=== PATIENT | female | born 1965 | race Caucasian/White ===

== ENCOUNTER 2017-11-16 20:21 | Inpatient (IN) ==
[2017-11-16] MEDS ORDERED: MetroNIDAZOLE 500 MG/100 ML 500 MG/100 ML BAG IVPB ONE (20:49)
--- NOTE | 2017-11-16 21:33 | Emergency Department Note ---
Disposition Clinical Impression: Acute diverticulitis Intractable nausea and vomiting Qualifiers: Vomiting type: unspecified Qualified Code(s): R11.2 - Nausea with vomiting, unspecified Disposition: Admitted As Inpatient Condition: Fair Time of Disposition: 23:43 Abdominal Pain HPI - General Chief Complaint: ED Abdominal Pain Stated Complaint: just seen/ gettin sick again Time Seen by Provider: 11/16/17 20:49 Nursing Notes Reviewed: Yes Vital Signs Reviewed: Yes - History of Present Illness HPI Narrative: Patient is a 52-year-old female who presents to [facility] ED with a chief complaint of left lower quadrant abdominal pain. She was just seen here and discharged home after being diagnosed with acute diverticulitis. She could not tolerate oral antibiotics. She vomited as soon as she got out to the parking lot and then checked back in. Pt Subjective Complaint: abdominal pain Pain Scale: 5 - Related Data Home Medications Medication Instructions Recorded Confirmed Budesonide/Formoterol 160/4.5 1 puff IH BIDR 11/16/17 11/16/17 [Symbicort 160/4.5] Cetirizine HCl [Zyrtec] 10 mg PO DAILY 11/16/17 11/16/17 Furosemide [Lasix] 40 mg PO DAILY 11/16/17 11/16/17 Ipratropium/Albuterol Sulfate 2 puff IH DAILY 11/16/17 11/16/17 [Combivent Respimat 20-100 Mcg] Losartan/Hydrochlorothiazide 1 tab PO DAILY 11/16/17 11/16/17 [Losartan-Hctz 100-12.5 mg Tab] Potassium Chloride [K-Tab ER] 60 mg PO DAILY 11/16/17 11/16/17 Tiotropium [Spiriva] 1 puff IH DAILY 11/16/17 11/16/17 Previous Rx's Medication Instructions Recorded Ciprofloxacin [Cipro] 500 mg PO BID #14 tablet 11/16/17 Ondansetron ODT [Zofran ODT] 4 mg SL Q6HR PRN #15 tab.rapdis 11/16/17 metroNIDAZOLE [Flagyl] 500 mg PO TID 7 Days #21 tablet 11/16/17 Allergies Allergy/AdvReac Type Severity Reaction Status Date / Time No Known Allergies Allergy Verified 11/16/17 21:31 All systems ED: reviewed and negative except as stated. Abdominal Pain PMH - Past Medical History Medical history: Reports: atrial fibrillation, COPD, diabetes, hypertension Female Surgical History: Reports: other Psychiatric history: Reports: depression - Social History Smoking status: Former smoker Alcohol use: Reports: occasionally Drug use: Reports: none Physical Exam - General Limitations: no limitations General appearance: alert, in no apparent distress - Head Head exam: atraumatic, normocephalic, normal inspection - Eye Eye exam: Present: EOMI - ENT ENT exam: normal exam, normal oropharynx, mucous membranes moist - Neck Neck exam: Present: normal inspection, full ROM, trachea midline - Chest Chest inspection: Present: normal inspection, symmetric chest wall rise - Respiratory Respiratory exam: Present: normal lung sounds bilaterally - Cardiovascular Cardiovascular exam: Present: normal rhythm, tachycardia - Abdominal Exam Abdominal exam: Present: soft, tenderness Abdominal tenderness: Present: LLQ, moderate - Extremities Exam Extremities exam: Present: normal inspection, full ROM. Absent: tenderness, pedal edema - Neurological Exam Neurological exam: Present: alert, oriented X3 - Psychiatric Psychiatric exam: Present: normal affect, normal mood - Skin Skin exam: Present: warm, dry, intact, normal color Course Course Narrative: Patient seen and examined. Patient just checked back into the emergency department. She was just discharged for acute diverticulitis. Could not tolerate oral antibiotics. Continued to vomit in the parking lot and came back in. Please see my prior note for further documentation. We will start IV antibiotics Cipro and Flagyl and get her admitted to the hospital - Reevaluation(s) Reevaluation #1: I discussed with the hospitalists who has accepted patient for admission. Time: 23:00 Vital Signs Temperature 99.5 F 11/16/17 20:38 Pulse Rate 120 11/16/17 20:38 Respiratory Rate 18 11/16/17 20:38 Blood Pressure 149/111 11/16/17 20:38 O2 Sat by Pulse Oximetry 95 11/16/17 20:38 Temperature 98.1 F 11/17/17 22:48 Pulse Rate 97 11/17/17 22:48 Respiratory Rate 16 11/17/17 22:48 Blood Pressure 117/84 11/17/17 22:48 O2 Sat by Pulse Oximetry 97 11/17/17 22:48 Oxygen Delivery Oxygen Delivery Room Air Abdominal Pain - Medical Records Medical records reviewed: Yes I reviewed the patient's medical records. - Lab Data Lab results reviewed: Yes I reviewed the patient's lab results. Result diagrams: 11/17/17 01:55 11/17/17 01:55 Lab Results 11/17/17 11/17/17 11/17/17 Range/Units 01:55 01:55 01:55 WBC 8.7 (4.3-11.1) K/mcL RBC 4.04 (3.82-4.97) M/mcL Hgb 12.4 (11.5-15.4) g/dL Hct 37.2 (35.3-44.9) % MCV 92.1 (83.0-100.0) fL MCH 30.7 (28.0-33.3) pg MCHC 33.3 (31.6-35.5) g/dL RDW 14.1 (11.5-14.5) % Plt Count 218 (140-400) K/mcL MPV 9.5 (9.4-12.4) fL Immature Gran % 0.3 (0-4) % Seg Neutrophils % 73.3 % Lymphocytes % 14.0 % Monocytes % 10.8 % Eosinophils % 1.3 % Basophils % 0.3 % Neutrophils # 6.4 (1.6-8.9) K/mcL Lymphocytes # 1.2 (0.6-4.6) K/mcL Monocytes # 0.9 (0.0-1.3) K/mcL Eosinophils # 0.1 (0.0-0.6) K/mcL Basophils # 0.0 (0.0-0.2) K/mcL PT 13.4 H (9.4-12.1) Seconds INR 1.2 APTT 29.2 (26.0-36.0) Seconds Sodium 139 (136-145) mEq/L Potassium 3.5 (3.5-5.1) mEq/L Chloride 105 (98-107) mEq/L Carbon Dioxide 27 (23-29) mEq/L BUN 8 (6-20) mg/dL Creatinine 0.57 L (0.60-1.20) mg/dL Est GFR ( Amer) > 60 (> 60) Est GFR (Non-Af Amer) > 60 (> 60) BUN/Creatinine Ratio 14 (6-26) Glucose 118 H (70-105) mg/dL Calculated Osmolality 287 (280-300) Calcium 8.7 (8.6-10.3) mg/dL Phosphorus 3.4 (2.7-4.5) mg/dL Magnesium 1.8 (1.6-2.6) mg/dL Total Bilirubin 1.1 H (0.3-1.0) mg/dL AST 12 L (13-39) Units/L ALT 10 (7-52) Units/L Alkaline Phosphatase 67 (34-104) Units/L Serum Total Protein 6.1 L (6.4-8.9) g/dL Albumin 3.4 L (3.5-5.7) g/dL Globulin 2.7 (2.4-3.5) g/dL Albumin/Globulin Ratio 1.3 (1.1-2.2) Triglycerides 41 (< 150) mg/dL Cholesterol 137 (< 200) mg/dL LDL Cholesterol, Calc 65 (0-99) mg/dL VLDL Cholesterol, Calc 8 (< 31) mg/dL HDL Cholesterol 64 H (40-59) mg/dL Cholesterol/HDL Ratio 2.1 (0-4.9) - Radiology Data Radiology results reviewed: Yes I reviewed the patient's radiology results. Attestation Statement - Attestation Attestation: I examined this patient and my medical decision-making was reviewed with the Resident Physician. I agree with the documented findings, disposition and treatment plan as described except to the extent set forth below. Patient with acute diverticulitis. Failed outpatient by mouth challenge with oral antibiotics. We will admit for IV antibiotics and antiemetics as well as pain control.
--- NOTE | 2017-11-16 23:10 | Internal Med History&Physical ---
Date of Encounter: 11/17/17 Internal Medicine - H&P: HPI History of present illness: Ms. Bajwa is a 52 year old female Patient who presents with abdominal pain and vomiting. Patient just checked back into the emergency department. She was just discharged for acute diverticulitis. Could not tolerate oral antibiotics. Continued to vomit in the parking lot and came back to ER Past Med Surg Social Fam HX - Past Medical History Medical history: atrial fibrillation, COPD, diabetes, hypertension Additional medical history: depression, insomniqa Psychiatric history: depression - Past Surgical History Surgical History: hysterectomy, other Additional surgical history: partial hysterectomy - Social History Smoking Status: Former smoker Smokeless Tobacco Status: No Alcohol use: occasionally Drug use: none - Family History Mother Adopted: No Family Member Ethnicity: Non- Father Hx Family Cancer: Yes (oak cell) Internal Medicine - H&P: Meds Budesonide/Formoterol 160/4.5 [Symbicort 160/4.5] 1 puff IH BIDR 11/16/17 [ History] Cetirizine HCl [Zyrtec] 10 mg PO DAILY 11/16/17 [History] Ciprofloxacin [Cipro] 500 mg PO BID #14 tablet 11/16/17 [Rx] Furosemide [Lasix] 40 mg PO DAILY 11/16/17 [History] Ipratropium/Albuterol Sulfate [Combivent Respimat 20-100 Mcg] 2 puff IH DAILY [History] Losartan/Hydrochlorothiazide [Losartan-Hctz 100-12.5 mg Tab] 1 tab PO DAILY [History] Ondansetron ODT [Zofran ODT] 4 mg SL Q6HR PRN #15 tab.rapdis 11/16/17 [Rx] Potassium Chloride [K-Tab ER] 60 mg PO DAILY 11/16/17 [History] Tiotropium [Spiriva] 1 puff IH DAILY 11/16/17 [History] metroNIDAZOLE [Flagyl] 500 mg PO TID 7 Days #21 tablet 11/16/17 [Rx] 3 Allergy/AdvReac Type Severity Reaction Status Date / Time No Known Allergies Allergy Verified 11/16/17 21:31 All Systems PM: A 10-system review of systems was performed and is negative for pertinent findings except as documented above in the HPI. Review of systems: Diverticulitis - NPO -ABs - Constitutional Vitals: Temp Pulse Resp BP Pulse Ox 99.5 F 120 18 149/111 95 11/16/17 22:27 11/16/17 22:27 11/16/17 22:27 11/16/17 22:27 11/16/17 22:27 Internal Med - H&P Results - Labs CBC & Chem 7: 11/17/17 01:55 11/17/17 01:55 - Assessment and plan (1) Acute diverticulitis Current Visit: Yes Status: Acute Assessment and plan: We will start ABs with ciprofloxacin and flagyl (2) Intractable nausea and vomiting Current Visit: Yes Status: Acute Assessment and plan: Due to diverticulitis Qualifiers: Vomiting type: unspecified Qualified Code(s): R11.2 - Nausea with vomiting , unspecified (3) HTN (hypertension) Current Visit: No Status: Chronic Assessment and plan: We will cont home meds Qualifiers: Hypertension type: essential hypertension Qualified Code(s): I10 - Essential (primary) hypertension (4) Chronic back pain Current Visit: No Status: Chronic (5) DVT prophylaxis Current Visit: Yes Status: Acute (6) Atrial fibrillation Current Visit: Yes Status: Acute - Time Spent With Patient Total time spent is greater than 50% in coordination of care (as documented) at patient's floor/unit and/or counseling patient:
[2017-11-17] MEDS ORDERED: Naloxone 0.4 MG/ML INJ IVP PRN ×2 (01:42→15:40)
[2017-11-17] MEDS ORDERED: Acetaminophen 325 MG TABLET PO PRN (01:42)
[2017-11-17 02:11] LABS: Basophils % 0.3 %; Eosinophils # 0.1 K/mcL (0.0-0.6); Eosinophils % 1.3 %; Hematocrit 37.2 % (35.3-44.9); Hemoglobin 12.4 g/dL (11.5-15.4); Immature Granulocytes % 0.3 % (0-4); Lymphocytes # 1.2 K/mcL (0.6-4.6); Mean Corpuscular HGB Conc 33.3 g/dL (31.6-35.5); Mean Corpuscular Hemoglobin 30.7 pg (28.0-33.3); Mean Corpuscular Volume 92.1 fL (83.0-100.0); Mean Platelet Volume 9.5 fL (9.4-12.4); Monocytes # 0.9 K/mcL (0.0-1.3); Monocytes % 10.8 %; Neutrophils # 6.4 K/mcL (1.6-8.9); Platelet Count 218 K/mcL (140-400); Red Blood Count 4.04 M/mcL (3.82-4.97); Red Cell Distribution Width 14.1 % (11.5-14.5); Segmented Neutrophils % 73.3 %
[2017-11-17 02:16] LABS: INR 1.2; Prothrombin Time 13.4 Seconds (9.4-12.1)
[2017-11-17 02:18] LABS: Activated Partial Thrombo Time 29.2 Seconds (26.0-36.0)
[2017-11-17 02:36] LABS: Alanine Aminotransferase 10 Units/L (7-52); Albumin 3.4 g/dL (3.5-5.7); Albumin/Globulin Ratio 1.3 (1.1-2.2); Alkaline Phosphatase 67 Units/L (34-104); Aspartate Amino Transferase 12 Units/L (13-39); BUN/Creatinine Ratio 14 (6-26); Bilirubin,Total 1.1 mg/dL (0.3-1.0); Blood Urea Nitrogen 8 mg/dL (6-20); Calcium 8.7 mg/dL (8.6-10.3); Carbon Dioxide 27 mEq/L (23-29); Chloride 105 mEq/L (98-107); Chol/HDL Ratio 2.1 (0-4.9); Cholesterol 137 mg/dL (< 200); Globulin 2.7 g/dL (2.4-3.5); Glucose 118 mg/dL (70-105); HDL Cholesterol 64 mg/dL (40-59); LDL Cholesterol,Calculated 65 mg/dL (0-99); Magnesium 1.8 mg/dL (1.6-2.6); Osmolality,Calculated 287 (280-300); Phosphorous 3.4 mg/dL (2.7-4.5); Potassium 3.5 mEq/L (3.5-5.1); Sodium 139 mEq/L (136-145); Total Protein 6.1 g/dL (6.4-8.9); Triglycerides 41 mg/dL (< 150); eGFR For African Americans > 60 (> 60); eGFR For Non-African Americans > 60 (> 60)
[2017-11-17] MEDS ORDERED: *HR* HYDROcodone/Acet 5/325 mg TABLET PO PRN (02:44)
[2017-11-17] MEDS: 0.9 % Sodium Chloride 1,000 ML IVC SCH ×2 (02:53→13:13)
[2017-11-17] MEDS: Tiotropium 18 MCG inhalation IH SCH (07:45)
[2017-11-17] MEDS: Budesonide/Formoterol 160/4.5 MDI IH SCH ×2 (07:45→19:49)
[2017-11-17] MEDS ORDERED: Ondansetron 4 MG/2 ML VIAL IVP PRN (08:19)
[2017-11-17] MEDS: Loratadine 10 MG TABLET PO SCH (08:59)
[2017-11-17] MEDS: Furosemide 40 MG TABLET PO SCH (09:00)
[2017-11-17] MEDS ORDERED: (Combivent Respimat) IH SCH (09:00)
[2017-11-17] MEDS: hydroCHLOROthiazide 25 MG TABLET PO SCH (09:00)
--- NOTE | 2017-11-17 09:14 | Internal Med Progress Note ---
Date of Encounter: 11/17/17 Time of Encounter: 09:11 - Assessment and plan (1) Acute diverticulitis Current Visit: Yes Status: Acute Assessment and plan: N/V and LLQ abdominal pain CT abdomen-acute uncomplicated sigmoid colonic diverticulitis ABX ciprofloxacin and flagyl antiemetics pain management IVF increase diet to clear and adv as justin (2) Intractable nausea and vomiting Current Visit: Yes Status: Acute Assessment and plan: 2/2 diverticulitis see above Qualifiers: Vomiting type: unspecified Qualified Code(s): R11.2 - Nausea with vomiting , unspecified (3) Chronic back pain Current Visit: No Status: Chronic Qualifiers: Qualified Code(s): M54.9 - Dorsalgia, unspecified; G89.29 - Other chronic pain (4) HTN (hypertension) Current Visit: No Status: Chronic Assessment and plan: Stable cont home meds Qualifiers: Hypertension type: essential hypertension Qualified Code(s): I10 - Essential (primary) hypertension (5) Atrial fibrillation Current Visit: Yes Status: Acute Assessment and plan: h/o not on anticoagulation RRR, S1,S2 tele Qualifiers: Atrial fibrillation type: paroxysmal Qualified Code(s): I48.0 - Paroxysmal atrial fibrillation (6) DVT prophylaxis Current Visit: Yes Status: Acute Assessment and plan: Low risk, early ambulation - Time Spent With Patient Total time spent is greater than 50% in coordination of care (as documented) at patient's floor/unit and/or counseling patient: 25 - 35 minutes - Subjective Interval history: Patient seen and examined at bedside today. No acute changes overnight. Continued to report left lower quadrant abdominal pain and nausea. However does report that this is improving. - Constitutional Vitals: Temp Pulse Resp BP Pulse Ox 98.1 F 89 18 118/84 94 11/17/17 08:11 11/17/17 08:11 11/17/17 08:11 11/17/17 08:11 11/17/17 08:11 General appearance: Present: mild distress, A&O X 3, pleasant, answers questions appropriately - Head Head exam: Present: atraumatic, normocephalic - Eye Eye exam: Present: PERRL, conjuntiva pink, sclera anicteric Pupils: Present: PERRL - Neck Neck exam general surgery: Present: supple, trachea midline. Absent: lymphadenopathy - Respiratory Respiratory exam: Present: CTAB. Absent: accessory muscle use, rales, rhonchi, wheezes - Cardiovascular Cardiovascular exam: Present: RRR, +S1, +S2. Absent: diastolic murmur, gallop, rubs, systolic murmur - GI/Abdominal GI/Abdominal exam: Present: normal bowel sounds, soft, tenderness (LLQ), no peritoneal signs. Absent: distended - Extremities Exam Extremities exam: Present: warm, radial pulses palpable and symmetrical. Absent : calf tenderness, cyanotic, pedal edema - Neurological Exam Neurological exam: Present: CN II-XII intact, oriented X3, no focal deficits. Absent: pronater drift, facial droop, speech deficit - Skin Skin exam: Present: dry, intact Internal Medicine: Result - Labs CBC & Chem 7: 11/17/17 01:55 11/17/17 01:55 Labs: Short CBC 11/17/17 Range/Units 01:55 WBC 8.7 (4.3-11.1) K/mcL Hgb 12.4 (11.5-15.4) g/dL Hct 37.2 (35.3-44.9) % Plt Count 218 (140-400) K/mcL Neutrophils # 6.4 (1.6-8.9) K/mcL BMP 11/17/17 01:55 Sodium 139 Potassium 3.5 Chloride 105 Carbon Dioxide 27 BUN 8 Creatinine 0.57 L Glucose 118 H Calcium 8.7 Liver Function 11/17/17 Range/Units 01:55 Total Bilirubin 1.1 H (0.3-1.0) mg/dL AST 12 L (13-39) Units/L ALT 10 (7-52) Units/L Alkaline Phosphatase 67 (34-104) Units/L Albumin 3.4 L (3.5-5.7) g/dL - ABG Interpretation ABG results: PT/INR, D-dimer PT 13.4 Seconds (9.4-12.1) H 11/17/17 01:55 Consult Discharge Plan - Plan Referrals: Anthony Guo MD [Primary Care Provider] -
[2017-11-17] MEDS: MetroNIDAZOLE 500 MG/100 ML 500 MG/100 ML BAG IVPB SCH ×3 (09:21→23:47)
[2017-11-18 07:11] LABS: Basophils % 0.6 %; Eosinophils # 0.2 K/mcL (0.0-0.6); Eosinophils % 4.9 %; Hematocrit 37.1 % (35.3-44.9); Hemoglobin 11.7 g/dL (11.5-15.4); Immature Granulocytes % 0.2 % (0-4); Lymphocytes # 1.2 K/mcL (0.6-4.6); Lymphocytes % 24.6 %; Mean Corpuscular HGB Conc 31.5 g/dL (31.6-35.5); Mean Corpuscular Hemoglobin 30.2 pg (28.0-33.3); Mean Corpuscular Volume 95.6 fL (83.0-100.0); Mean Platelet Volume 9.7 fL (9.4-12.4); Monocytes # 0.5 K/mcL (0.0-1.3); Monocytes % 9.6 %; Neutrophils # 2.8 K/mcL (1.6-8.9); Platelet Count 219 K/mcL (140-400); Red Blood Count 3.88 M/mcL (3.82-4.97); Red Cell Distribution Width 14.1 % (11.5-14.5); Segmented Neutrophils % 60.1 %
[2017-11-18 07:17] VITALS: BP 108/73
[2017-11-18 07:38] LABS: BUN/Creatinine Ratio 10 (6-26); Blood Urea Nitrogen 6 mg/dL (6-20); Calcium 8.8 mg/dL (8.6-10.3); Carbon Dioxide 29 mEq/L (23-29); Chloride 101 mEq/L (98-107); Glucose 161 mg/dL (70-105); Osmolality,Calculated 289 (280-300); Potassium 3.3 mEq/L (3.5-5.1); Sodium 139 mEq/L (136-145); eGFR For African Americans > 60 (> 60); eGFR For Non-African Americans > 60 (> 60)
[2017-11-18] MEDS: Budesonide/Formoterol 160/4.5 MDI IH SCH (07:56)
[2017-11-18] MEDS: Tiotropium 18 MCG inhalation IH SCH (07:56)
[2017-11-18] MEDS: hydroCHLOROthiazide 25 MG TABLET PO SCH (08:49)
[2017-11-18] MEDS: Furosemide 40 MG TABLET PO SCH (08:49)
[2017-11-18] MEDS: Loratadine 10 MG TABLET PO SCH (08:49)
[2017-11-18] MEDS: MetroNIDAZOLE 500 MG/100 ML 500 MG/100 ML BAG IVPB SCH (08:59)
[2017-11-18] MEDS ORDERED: Ondansetron ODT 4 MG TAB.RAPDIS SL PRN (10:09)
[2017-11-18] MEDS ORDERED: metroNIDAZOLE 500 MG TABLET PO SCH (10:15)
--- NOTE | 2017-11-18 10:15 | Discharge Summary ---
- NOTES TO OUTPATIENT PROVIDER Notes to Outpatient Provider: Presents left lower quadrant abdominal pain. Diverticulitis found per CT. He discharged on ciprofloxacin and Flagyl. We will receive a total of 14 days both ABX. Instructed to take Tylenol or ibuprofen for discomfort. Education provided regarding low-residue diet. No labs or studies pending at discharge Date of Encounter: 11/18/17 Time of Encounter: 10:10 - Discharge Diagnosis (1) Acute diverticulitis Priority: Primary Status: Acute Assessment and Plan: CT abdomen-acute uncomplicated sigmoid colonic diverticulitis Patient presented with N/V and LLQ abdominal pain Was seen and treated in the ED and discharged home However, in the parking lot began to experience more intense abdominal pain and was vomiting This prompted admission for IVF administration, IV ABX and pain management She has had an uncomplicated hospital course On day of discharge no longer having nausea or vomiting and reporting abdominal pain is improving We have been steadily increasing her diet since yesterday and she has tolerated this well Patient has been instructed to follow-up with PCP within 1 week of discharge. Also, she is instructed to return to the ED showed abdominal pain worsened and or persist or should she have recurrence of nausea and vomiting. Patient verbalizes understanding denies any further questions at this time. Also, the patient was given information regarding a low residue diet. Again patient verbalizes understanding denies any further questions at this time. Discharged on ABX ciprofloxacin and flagyl-10 more days SL antiemetics Instructed to use ibuprofen or Tylenol for pain management (2) Intractable nausea and vomiting Priority: Secondary Status: Resolved Assessment and Plan: 2/2 diverticulitis resolved continue antiemetics at discharge Qualifiers: Vomiting type: unspecified Qualified Code(s): R11.2 - Nausea with vomiting , unspecified (3) Chronic back pain Priority: Secondary Status: Chronic Qualifiers: Qualified Code(s): M54.9 - Dorsalgia, unspecified; G89.29 - Other chronic pain (4) HTN (hypertension) Priority: Secondary Status: Chronic Assessment and Plan: Stable cont home meds at d/c Qualifiers: Hypertension type: essential hypertension Qualified Code(s): I10 - Essential (primary) hypertension (5) Atrial fibrillation Priority: Secondary Status: Acute Assessment and Plan: h/o not on anticoagulation RRR, S1,S2 per assessment on day of d/c Qualifiers: Atrial fibrillation type: paroxysmal Qualified Code(s): I48.0 - Paroxysmal atrial fibrillation Hospital course: Ms. Bajwa is a 52 year old female Please see assessment and plan for hospital course Discharge discussed with: patient, nurse, case management - Time Spent with Patient Total time spent providing and/or coordinating discharge services: Less than 30 minutes - Discharge Medications Prescriptions: Ondansetron ODT [Zofran ODT] 4 mg SL Q8HR PRN 30 Days #90 tab.rapdis PRN Reason: Nausea And Vomiting Ciprofloxacin [Cipro] 500 mg PO BID 10 Days #20 tablet metroNIDAZOLE [Flagyl] 500 mg PO TID 10 Days #30 tablet Home Medications: Budesonide/Formoterol 160/4.5 [Symbicort 160/4.5] 1 puff IH BIDR 11/16/17 [ History] Cetirizine HCl [Zyrtec] 10 mg PO DAILY 11/16/17 [History] Furosemide [Lasix] 40 mg PO DAILY 11/16/17 [History] Ipratropium/Albuterol Sulfate [Combivent Respimat 20-100 Mcg] 2 puff IH DAILY [History] Losartan/Hydrochlorothiazide [Losartan-Hctz 100-12.5 mg Tab] 1 tab PO DAILY [History] Potassium Chloride [K-Tab ER] 60 mg PO DAILY 11/16/17 [History] Tiotropium [Spiriva] 1 puff IH DAILY 11/16/17 [History] Ciprofloxacin [Cipro] 500 mg PO BID 10 Days #20 tablet 11/18/17 [Rx] Ondansetron ODT [Zofran ODT] 4 mg SL Q8HR PRN 30 Days #90 tab.rapdis 11/18/17 [ Rx] metroNIDAZOLE [Flagyl] 500 mg PO TID 10 Days #30 tablet 11/18/17 [Rx] Allergies/Adverse Reactions: 3 Allergy/AdvReac Type Severity Reaction Status Date / Time No Known Allergies Allergy Verified 11/16/17 21:31 Date of admission: 11/17/17 15:40 Primary care physician: Anthony Guo MD Discharging clinician: Lopez Griggs Anticipated date of discharge: 11/18/17 - Constitutional Vitals: Temp Pulse Resp BP Pulse Ox 97.8 F 84 16 108/73 96 11/18/17 07:16 11/18/17 07:16 11/18/17 07:56 11/18/17 07:16 11/18/17 07:56 General appearance: Present: mild distress, A&O X 3, pleasant, answers questions appropriately - Head Head exam: Present: atraumatic, normocephalic - Eye Eye exam: Present: EOMI, PERRL, conjuntiva pink, sclera anicteric Pupils: Present: PERRL - Neck Neck exam general surgery: Present: supple, trachea midline. Absent: lymphadenopathy - Respiratory Respiratory exam: Present: CTAB. Absent: accessory muscle use, rales, rhonchi, wheezes - Cardiovascular Cardiovascular exam: Present: RRR, +S1, +S2. Absent: diastolic murmur, gallop, rubs, systolic murmur - GI/Abdominal GI/Abdominal exam: Present: normal bowel sounds, soft, tenderness (Mild left lower quadrant tenderness, improving compared to yesterday), no peritoneal signs. Absent: distended, firm, guarding - Extremities Exam Extremities exam: Present: warm, radial pulses palpable and symmetrical. Absent : calf tenderness, cyanotic, pedal edema - Neurological Exam Neurological exam: Present: CN II-XII intact, oriented X3, no focal deficits. Absent: pronater drift, facial droop, speech deficit - Skin Skin exam: Present: dry, intact - Patient Status Disposition: Home, Self-Care Condition: Fair Overall status at discharge: patient is progressing back to baseline - Discharge Instructions Instructions: Diverticulitis (DC), Atrial Fibrillation (DC) Follow Up With: Anthony Guo MD [Primary Care Provider] - - Diet and Activity Activity: resume usual activities as tolerated Diet: other (Low-residue diet)
== END 2017-11-18 11:43 | disposition home or self-care (01) | DRG 244 ==
LOC: EMEROO 20:21 → 3BNU 20:21
PROVIDERS: ADMIT Internal Medicine Nephrology; ATTEND Internal Medicine Nephrology

== ENCOUNTER 2018-08-18 14:17 | Observation (INO) ==
--- NOTE | 2018-08-18 14:53 | Emergency Department Note ---
Disposition Clinical Impression: Chest pain Qualifiers: Chest pain type: unspecified Qualified Code(s): R07.9 - Chest pain, unspecified CHF exacerbation Qualifiers: Heart failure type: systolic Qualified Code(s): I50.23 - Acute on chronic systolic (congestive) heart failure Disposition: Admitted As Inpatient Condition: Undetermined Referrals: Anthony Guo MD [Primary Care Provider] - Forms: ED Satisfaction Letter Time of Disposition: 16:17 Chest Pain HPI - General Chief Complaint: ED Chest Pain Stated Complaint: multiple complaints Time Seen by Provider: 08/18/18 14:22 Source: patient Mode of arrival: ambulatory Limitations: no limitations Vital Signs Reviewed: Yes Nursing Notes Reviewed: Yes - History of Present Illness HPI Narrative: 53-year-old female with history of COPD, atrial fibrillation, arrives to the emergency department with complaint of chest pain that is retrosternal radiating to the left chest and left shoulder that started at 11 AM this morning with associated shortness of breath and nausea. Patient states she has never had anything this bad before. She denies any previous history of IA. Patient was diagnosed with atrial fibrillation a few months ago and has been placed on Cardizem 360 mg daily as well as Xarelto. She has been taking her medications as prescribed her history. She denies any other acute complaints including hemoptysis, unilateral excellent, recent surgeries or immobilizations, history DVT or PE. She is on no exogenous hormones. Patient denies any other acute complaints at this time including abdominal pain, vomiting, diarrhea, melena, hematochezia, headache, fevers, chills. Severity scale (1-10): 4 - Related Data Home Medications Medication Instructions Recorded Confirmed Budesonide/Formoterol 160/4.5 1 puff IH BIDR 11/16/17 07/03/18 [Symbicort 160/4.5] Cetirizine HCl [Zyrtec] 10 mg PO DAILY 11/16/17 07/03/18 Ipratropium/Albuterol Sulfate 2 puff IH DAILY 11/16/17 07/03/18 [Combivent Respimat 20-100 Mcg] Losartan/Hydrochlorothiazide 1 tab PO DAILY 11/16/17 07/03/18 [Losartan-Hctz 100-12.5 mg Tab] Potassium Chloride [K-Tab ER] 60 meq PO DAILY 11/16/17 07/03/18 Tiotropium [Spiriva] 1 puff IH DAILY 11/16/17 07/03/18 Previous Rx's Medication Instructions Recorded Rivaroxaban [Xarelto] 20 mg PO 1700 tablet 07/05/18 Allergies Allergy/AdvReac Type Severity Reaction Status Date / Time No Known Allergies Allergy Verified 11/16/17 21:31 All systems ED: reviewed and negative except as stated. Constitutional: Denies: fever, chills, weakness ENT ED: Denies: dysphagia Cardiovascular: Reports: chest pain. Denies: dyspnea on exertion, orthopnea, edema, syncope Respiratory: Reports: dyspnea. Denies: cough, wheezes, sputum production Gastrointestinal: Reports: nausea. Denies: abdominal pain, vomiting, diarrhea, constipation Genitourinary: Denies: urgency, dysuria Musculoskeletal: Denies: back pain Integumentary: Denies: rash Neurological: Denies: headache Chest Pain PMH - Past Medical History Medical history: Reports: atrial fibrillation, COPD, diabetes, hypertension Surgical history: Reports: hysterectomy, other Psychiatric history: Reports: depression - Social History Smoking Status: Former smoker Alcohol use: Reports: occasionally Drug use: Reports: none Physical Exam - General Limitations: no limitations General appearance: alert, in no apparent distress - Head Head exam: atraumatic, normocephalic, normal inspection - Eye Eye exam: Present: normal appearance, PERRL, EOMI - ENT ENT exam: normal exam, normal oropharynx, mucous membranes moist - Neck Neck exam: Present: normal inspection, full ROM, trachea midline - Chest Chest inspection: Present: normal inspection, symmetric chest wall rise - Respiratory Respiratory exam: Present: normal lung sounds bilaterally - Cardiovascular Cardiovascular exam: Present: tachycardia, irregular rhythm, normal heart sounds - Abdominal Exam Abdominal exam: Present: soft, Non-Tender. Absent: tenderness, distention, guarding, rebound, rigidity - Extremities Exam Extremities exam: Present: normal inspection, full ROM, normal capillary refill. Absent: tenderness, pedal edema - Neurological Exam Neurological exam: Present: alert, oriented X3 - Skin Skin exam: Present: warm, dry, intact, normal color Course Vital Signs Temperature 98.6 F 08/18/18 14:19 Pulse Rate 108 08/18/18 14:19 Respiratory Rate 22 08/18/18 14:19 Blood Pressure 150/76 08/18/18 14:19 O2 Sat by Pulse Oximetry 97 08/18/18 14:19 Temperature 98.6 F 08/18/18 14:19 Pulse Rate 112 08/18/18 15:44 Respiratory Rate 18 08/18/18 15:44 Blood Pressure 143/101 08/18/18 15:44 O2 Sat by Pulse Oximetry 97 08/18/18 15:44 Oxygen Delivery Oxygen Delivery Room Air Chest Pain - MDM Narrative Medical decision making narrative: Patient's workup in the emergency department demonstrates findings concerning for acute CHF. Patient is a mildly elevated BNP and cardiomegaly which appears new. The patient's troponin is negative. EKG demonstrates no acute process with the exception of atrial fibrillation. The patient is no nature for ablation is on Xarelto. Given the patient's chest pain I believe the patient needs to be admitted to the hospital trend her troponins. In addition a feels though the patient needs an echocardiogram with new cardiomegaly combined with elevated BNP. Patient made aware and agrees to plan. No further questions or concerns noted at this time. Accepted by Dr. Grubbs. - Medical Records Medical records reviewed: Yes I reviewed the patient's medical records. - Lab Data Lab results reviewed: Yes I reviewed the patient's lab results. Result diagrams: 08/18/18 14:44 08/18/18 14:44 Lab Results 08/18/18 08/18/18 08/18/18 Range/Units 14:44 14:44 14:44 WBC 4.5 (4.3-11.1) K/mcL RBC 4.01 (3.82-4.97) M/mcL Hgb 12.0 (11.5-15.4) g/dL Hct 37.4 (35.3-44.9) % MCV 93.3 (83.0-100.0) fL MCH 29.9 (28.0-33.3) pg MCHC 32.1 (31.6-35.5) g/dL RDW 13.7 (11.5-14.5) % Plt Count 282 (140-400) K/mcL MPV 9.1 L (9.4-12.4) fL Immature Gran % 0.4 (0-4) % Seg Neutrophils % 72.0 % Lymphocytes % 16.0 % Monocytes % 8.9 % Eosinophils % 1.6 % Basophils % 1.1 % Neutrophils # 3.2 (1.6-8.9) K/mcL Lymphocytes # 0.7 (0.6-4.6) K/mcL Monocytes # 0.4 (0.0-1.3) K/mcL Eosinophils # 0.1 (0.0-0.6) K/mcL Basophils # 0.1 (0.0-0.2) K/mcL D-Dimer 245 (0-500) ng/mLFEU Sodium 138 (136-145) mEq/L Potassium 4.0 (3.5-5.1) mEq/L Chloride 103 (98-107) mEq/L Carbon Dioxide 27 (23-29) mEq/L BUN 6 (6-20) mg/dL Creatinine 0.52 L (0.60-1.20) mg/dL Est GFR ( Amer) > 60 (> 60) Est GFR (Non-Af Amer) > 60 (> 60) BUN/Creatinine Ratio 12 (6-26) Glucose 114 H (70-105) mg/dL Calculated Osmolality 284 (280-300) Calcium 8.8 (8.6-10.3) mg/dL Troponin I < 0.03 (< 0.04) ng/mL B-Natriuretic Peptide (Less than 100) pg/mL 08/18/18 Range/Units 14:44 WBC (4.3-11.1) K/mcL RBC (3.82-4.97) M/mcL Hgb (11.5-15.4) g/dL Hct (35.3-44.9) % MCV (83.0-100.0) fL MCH (28.0-33.3) pg MCHC (31.6-35.5) g/dL RDW (11.5-14.5) % Plt Count (140-400) K/mcL MPV (9.4-12.4) fL Immature Gran % (0-4) % Seg Neutrophils % % Lymphocytes % % Monocytes % % Eosinophils % % Basophils % % Neutrophils # (1.6-8.9) K/mcL Lymphocytes # (0.6-4.6) K/mcL Monocytes # (0.0-1.3) K/mcL Eosinophils # (0.0-0.6) K/mcL Basophils # (0.0-0.2) K/mcL D-Dimer (0-500) ng/mLFEU Sodium (136-145) mEq/L Potassium (3.5-5.1) mEq/L Chloride (98-107) mEq/L Carbon Dioxide (23-29) mEq/L BUN (6-20) mg/dL Creatinine (0.60-1.20) mg/dL Est GFR ( Amer) (> 60) Est GFR (Non-Af Amer) (> 60) BUN/Creatinine Ratio (6-26) Glucose (70-105) mg/dL Calculated Osmolality (280-300) Calcium (8.6-10.3) mg/dL Troponin I (< 0.04) ng/mL B-Natriuretic Peptide 192 H (Less than 100) pg/mL - Radiology Data Radiology results reviewed: Yes I reviewed the patient's radiology results. Chest X-Ray 08/18/18 14:27 IMPRESSION: Cardiomegaly and/or pericardial effusion, increased from 2015. Grossly clear lungs. D/ / Oli Gutierrez MD / Oli Gutierrez MD Interpreting Provider: Oli Gutierrez MD - EKG Data EKG attestation: Yes I reviewed and interpreted this EKG. EKG results narrative: Heart rate 109 beats for minute. Atrial fibrillation. No ST elevation or ST depression noted. No acute changes with the exception of mild tachycardia.
[2018-08-18 14:57] LABS: Basophils # 0.1 K/mcL (0.0-0.2); Basophils % 1.1 %; Eosinophils # 0.1 K/mcL (0.0-0.6); Eosinophils % 1.6 %; Hematocrit 37.4 % (35.3-44.9); Immature Granulocytes % 0.4 % (0-4); Lymphocytes # 0.7 K/mcL (0.6-4.6); Mean Corpuscular HGB Conc 32.1 g/dL (31.6-35.5); Mean Corpuscular Hemoglobin 29.9 pg (28.0-33.3); Mean Corpuscular Volume 93.3 fL (83.0-100.0); Mean Platelet Volume 9.1 fL (9.4-12.4); Monocytes # 0.4 K/mcL (0.0-1.3); Monocytes % 8.9 %; Neutrophils # 3.2 K/mcL (1.6-8.9); Platelet Count 282 K/mcL (140-400); Red Blood Count 4.01 M/mcL (3.82-4.97); Red Cell Distribution Width 13.7 % (11.5-14.5)
[2018-08-18 15:31] LABS: BUN/Creatinine Ratio 12 (6-26); Blood Urea Nitrogen 6 mg/dL (6-20); Calcium 8.8 mg/dL (8.6-10.3); Carbon Dioxide 27 mEq/L (23-29); Chloride 103 mEq/L (98-107); Glucose 114 mg/dL (70-105); Osmolality,Calculated 284 (280-300); Sodium 138 mEq/L (136-145); Troponin I < 0.03 ng/mL (< 0.04); eGFR For Non-African Americans > 60 (> 60)
[2018-08-18] MEDS ORDERED: Aspirin 325 MG TABLET PO ONE (16:16)
--- NOTE | 2018-08-18 16:26 | Internal Med History&Physical ---
<Luis Eduardo Burgess - Last Filed: 08/18/18 17:21> Date of Encounter: 08/18/18 Time of Encounter: 17:11 Internal Medicine - H&P: HPI Chief complaint: Chest pain, SOB Admitted From: Emergency Dept Plans for Post Hospital Care: Home History of present illness: Ms. Bajwa is a 53 year old female with past medical history of COPD, pre- diabetes, atrial fibrillation on Xarelto, depression who presents emergency department with multiple complaints. She reports that she awoke with chest pain, shortness of breath, nausea, vomiting, diaphoresis, chills this morning at approximately 10 AM. She first states that she has not had these symptoms in the past except for when occasionally she goes into atrial fibrillation with RVR. Her chest pain is located substernally and also in the left chest with some radiation to her left shoulder. She describes it as a pins and needles feeling. She denies any exacerbating or relieving factors, although when asked if she could climb a flight of stairs she states that "that would make my chest hurt and make me short of breath". Upon further investigation, she has had symptoms like this although not this severe over the past 2 months. She also admits to shortness of breath, particularly with exertion. She has had this in the past and has been diagnosed with COPD and is on home inhalers. She states the inhalers do help her symptoms sometimes but not always. She has also been on Lasix 40 mg daily at home. She admits to orthopnea and lower extremity sw elling which is worsened from her baseline. Denies recent travel, sick contacts, recent illness, urinary or BM changes. Admits to possible worsening of chest pain when leaning forward but is unsure. In the emergency department, vital signs are significant for a heart rate of 108, respiratory rate 22 she was tolerating 97% oxygen on room air. Laboratory results were significant for a BNP of 192 and negative troponin. EKG was obtained and showed atrial fibrillation with no ST/T-wave changes. Mild RVR. Chest x-ray was also obtained and showed cardiomegaly and/or pericardial effusion which is increased from 2015. D-dimer was within normal limits. Patient's past cardio workout includes echocardiogram on 07/04/18 which showed ejection fraction of 55% with indeterminate diastolic dysfunction. Also showed mild dilatation of right ventricle, right atrium and moderate dilatation of left atrium, mild MR. Past medical history: COPD, prediabetes, A. fib, JOSELIN (noncompliant on CPAP), depression Past surgical history: Lap band surgery, partial hysterectomy Social history: Former distant smoker, drinks 6-8 beers 3 times weekly, former marijuana use Family history: Noncontributory Past Med Surg Social Fam HX - Past Medical History Medical history: atrial fibrillation, COPD, diabetes, hypertension Additional medical history: depression, insomniqa Psychiatric history: depression - Past Surgical History Surgical History: hysterectomy, other Additional surgical history: partial hysterectomy - Social History Smoking Status: Former smoker Smokeless Tobacco Status: No Alcohol use: occasionally Drug use: none - Family History Mother Adopted: No Family Member Ethnicity: Non- Hx Family Cardiac Disorders: Yes (CHF) Hx Family Respiratory Disorders: Yes (COPD) Father Adopted: No Family Member Ethnicity: Non- Living Status: Hx Family Cardiac Disorders: No Hx Family Respiratory Disorders: No Hx Family Cancer: Yes (oak cell) Hx Family GI Disorders: No Internal Medicine - H&P: Meds Cetirizine HCl [Zyrtec] 10 mg PO DAILY 11/16/17 [History] Rivaroxaban [Xarelto] 20 mg PO 1700 tablet 07/05/18 [Rx] Diltiazem HCl [Cardizem Cd] 360 mg PO DAILY 08/18/18 [History] Furosemide [Lasix] 40 mg PO DAILY 08/18/18 [History] Allergy/AdvReac Type Severity Reaction Status Date / Time No Known Allergies Allergy Verified 11/16/17 21:31 All Systems PM: A 10-system review of systems was performed and is negative for pertinent findings except as documented above in the HPI. Review of systems: - Constitutional: Admits to chills. Denies fevers,weight loss, generalized fatigue - Head/Neck: Denies WALTERS, neck stiffness - EENT: Denies vision changes/blurriness, rhinorrhea, congestion, sore throat, odynaphagia - CVS: Admits to chest pain, palpitations, orthopnea, edema, DÍAZ. Denies PND, - Pulm: Admits to shortness of breath, Denies cough, sputum, hematemesis, wheezing - GI: Denies abdominal pain, anorexia, nausea, vomiting, diarrhea, constipation, melena - : Denies dysuria, increased frequency, urgency, hematuria, - Heme: Denies ease of bleeding or bruising - MSK: Denies joint pain, limited ROM - Skin: Denies rashes, ulcers, color changes, - Neuro: Denies WALTERS, paresthesias, focal deficits, ataxia, - Constitutional Vitals: Temp Pulse Resp BP Pulse Ox 98.6 F 112 18 143/101 97 08/18/18 14:19 08/18/18 15:44 08/18/18 15:44 08/18/18 15:44 08/18/18 15:44 Exam: Gen.: Vitals noted. No acute distress. AAOx3, resting comfortably in bed. Morbidly obese HEENT: PERRL/EOMI, oropharynx clear, Normocephalic, atraumatic, MMM Cardiac: Irregularly irregular, mildly tachycardic, no murmur, +S1/S2, 2+ BLE edema Pulmonary: Mild to moderate wheeze in bilateral lung, most prominent in bases. equal chest expansion, unlabored breathing Abdomen: soft, mildly tender to palpation in left upper quadrant, BS noted, no guarding, no palpable HSM Skin: warm and dry, no visible lesions. MSK: ROM intact, no joint swelling noted, gait no assessed while in bed. Non tender calf or clubbing Neuro: A&Ox3, moves all extremities, no focal deficits, sensation intact Psych: Appropriate mood and behavior, AOx3 Internal Med - H&P Results - Labs CBC & Chem 7: 08/18/18 14:44 08/18/18 14:44 Labs: Short CBC 08/18/18 08/18/18 08/18/18 Range/Units 14:44 14:44 14:44 WBC 4.5 (4.3-11.1) K/mcL RBC 4.01 (3.82-4.97) M/mcL Hgb 12.0 (11.5-15.4) g/dL Hct 37.4 (35.3-44.9) % MCV 93.3 (83.0-100.0) fL MCH 29.9 (28.0-33.3) pg MCHC 32.1 (31.6-35.5) g/dL RDW 13.7 (11.5-14.5) % Plt Count 282 (140-400) K/mcL MPV 9.1 L (9.4-12.4) fL Immature Gran % 0.4 (0-4) % Seg Neutrophils % 72.0 % Lymphocytes % 16.0 % Monocytes % 8.9 % Eosinophils % 1.6 % Basophils % 1.1 % Neutrophils # 3.2 (1.6-8.9) K/mcL Lymphocytes # 0.7 (0.6-4.6) K/mcL Monocytes # 0.4 (0.0-1.3) K/mcL Eosinophils # 0.1 (0.0-0.6) K/mcL Basophils # 0.1 (0.0-0.2) K/mcL D-Dimer 245 (0-500) ng/mLFEU Sodium 138 (136-145) mEq/L Potassium 4.0 (3.5-5.1) mEq/L Chloride 103 (98-107) mEq/L Carbon Dioxide 27 (23-29) mEq/L BUN 6 (6-20) mg/dL Creatinine 0.52 L (0.60-1.20) mg/dL Est GFR ( Amer) > 60 (> 60) Est GFR (Non-Af Amer) > 60 (> 60) BUN/Creatinine Ratio 12 (6-26) Glucose 114 H (70-105) mg/dL Calculated Osmolality 284 (280-300) Calcium 8.8 (8.6-10.3) mg/dL Troponin I < 0.03 (< 0.04) ng/mL B-Natriuretic Peptide (Less than 100) pg/mL 08/18/18 Range/Units 14:44 WBC (4.3-11.1) K/mcL RBC (3.82-4.97) M/mcL Hgb (11.5-15.4) g/dL Hct (35.3-44.9) % MCV (83.0-100.0) fL MCH (28.0-33.3) pg MCHC (31.6-35.5) g/dL RDW (11.5-14.5) % Plt Count (140-400) K/mcL MPV (9.4-12.4) fL Immature Gran % (0-4) % Seg Neutrophils % % Lymphocytes % % Monocytes % % Eosinophils % % Basophils % % Neutrophils # (1.6-8.9) K/mcL Lymphocytes # (0.6-4.6) K/mcL Monocytes # (0.0-1.3) K/mcL Eosinophils # (0.0-0.6) K/mcL Basophils # (0.0-0.2) K/mcL D-Dimer (0-500) ng/mLFEU Sodium (136-145) mEq/L Potassium (3.5-5.1) mEq/L Chloride (98-107) mEq/L Carbon Dioxide (23-29) mEq/L BUN (6-20) mg/dL Creatinine (0.60-1.20) mg/dL Est GFR ( Amer) (> 60) Est GFR (Non-Af Amer) (> 60) BUN/Creatinine Ratio (6-26) Glucose (70-105) mg/dL Calculated Osmolality (280-300) Calcium (8.6-10.3) mg/dL Troponin I (< 0.04) ng/mL B-Natriuretic Peptide 192 H (Less than 100) pg/mL BMP 08/18/18 14:44 Sodium 138 Potassium 4.0 Chloride 103 Carbon Dioxide 27 BUN 6 Creatinine 0.52 L Glucose 114 H Calcium 8.8 Cardiac Enzymes 08/18/18 Range/Units 14:44 Troponin I < 0.03 (< 0.04) ng/mL - Impressions ITS Impressions Chest X-Ray 08/18/18 14:27 IMPRESSION: Cardiomegaly and/or pericardial effusion, increased from 2015. Grossly clear lungs. D/ / Oli Gutierrez MD / Oli Gutierrez MD Interpreting Provider: Oli Gutierrez MD - Assessment and Plan (1) Chest pain Current Visit: Yes Status: Acute Assessment and plan: - Patient reports atypical chest pain and history of present illness fluctuates - Patient describes both exertional and nonexertional chest pain - EKG in emergency department shows atrial fibrillation, no ST/T-wave changes. Troponin negative 1 - Etiology is suspicious for MSK, psychosomatic however alternative etiologies such as ACS, Shivani/myocarditis, GB disease are also considered - Only previous cardiac workup is echocardiogram on 07/04/18 shows preserved ejection fraction with indeterminate diastolic dysfunction. - Chest x-ray emergency department shows cardiomegaly versus pericardial effusion which is new from 2015 - Heart score 4 (age, risk, mildly suspicious) Plan - Trend troponins - Repeat echocardiogram in the a.m. to rule out pericardial effusion - Nuclear stress test in AM, NPO midnight - Consider right upper quadrant ultrasound if pain persists Qualifiers: Chest pain type: unspecified Qualified Code(s): R07.9 - Chest pain, u nspecified; R07.8 - Other chest pain (2) Atrial fibrillation with RVR Current Visit: Yes Status: Acute Assessment and plan: - Known history of atrial fibrillation diagnosed in 2004 - Anticoagulation of Xarelto at home - Heart rate in the 110s on this admission which is possibly exacerbated by pain, dyspnea - We will continue home Cardizem once medications are reconciled - Etiology of atrial fibrillation likely related to pulmonary disease, body habitus/obesity (3) CHF exacerbation Current Visit: Yes Status: Suspected Assessment and plan: - Evidence of fluid overload on physical exam with edema however no JVD was noted - BNP elevated at 192, however this is decreased from previous visits - Patient does describe symptoms orthopnea - Most recent echocardiogram on 07/04/18 shows ejection first of 55% with indeterminate diastolic dysfunction - Patient is at home Lasix 40 mg daily - Given that she is clinically presenting as a CHF exacerbation which is possibly complicated by OHS/JOSELIN, we will treat as CHF exacerbation and monitor for improvement Plan - Repeat echo - Increase home lasix to 40 mg IV BID - Strict I/Os, fluid restrict to 2 L Qualifiers: Heart failure type: diastolic Qualified Code(s): I50.33 - Acute on chronic diastolic (congestive) heart failure (4) SIRS (systemic inflammatory response syndrome) Current Visit: Yes Status: Acute Assessment and plan: - Met on admission with tachycardia, tachypnea - No obvious source of infection - Suspect this is most likely secondary to dyspnea and atrial fibrillation - We will not start antibiotics, will not obtain blood cultures - We will continue monitor this time (5) Prediabetes Current Visit: Yes Status: Chronic Assessment and plan: - Per history - Glucose on admission of 114 - We will continue monitor and start insulin as needed - Given body habitus, advise dietary and exercise changes (6) HTN (hypertension) Current Visit: Yes Status: Chronic Assessment and plan: - Mildly elevated at 141/92 on most recent reading - On home Cardizem per patient - We will continue home medications once reconciled Qualifiers: Hypertension type: essential hypertension Qualified Code(s): I10 - Essential (primary) hypertension (7) JOSELIN (obstructive sleep apnea) Current Visit: Yes Status: Chronic Assessment and plan: - Patient reports noncompliance - CPAP (8) Morbid obesity Current Visit: Yes Status: Chronic Assessment and plan: BMI of 53 Advised dietary and exercise changes as outpatient (9) DVT prophylaxis Current Visit: Yes Status: Acute Assessment and plan: Continue Feliz Xarelto (10) COPD (chronic obstructive pulmonary disease) Current Visit: Yes Status: Chronic Assessment and plan: - Does not appear to be in acute exacerbation - Will continue home bronchodilators Qualifiers: COPD type: emphysema Emphysema type: unspecified Qualified Code(s): J43.9 - Emphysema, unspecified - Time Spent With Patient Total time spent is greater than 50% in coordination of care (as documented) at patient's floor/unit and/or counseling patient: <Leeroy Chandler - Last Filed: 08/18/18 18:42> Date of Encounter: 08/18/18 Internal Medicine - H&P: HPI History of present illness: Ms. Bajwa is a 53 year old female All Systems PM: A 10-system review of systems was performed and is negative for pertinent findings except as documented above in the HPI. - Constitutional Vitals: Temp Pulse Resp BP Pulse Ox 98.1 F 107 18 184/97 94 08/18/18 18:01 08/18/18 18:01 08/18/18 18:01 08/18/18 18:01 08/18/18 18:01 Internal Med - H&P Results - Labs CBC & Chem 7: 08/18/18 14:44 08/18/18 14:44 Labs: Short CBC 08/18/18 Range/Units 14:44 WBC 4.5 (4.3-11.1) K/mcL Hgb 12.0 (11.5-15.4) g/dL Hct 37.4 (35.3-44.9) % Plt Count 282 (140-400) K/mcL Neutrophils # 3.2 (1.6-8.9) K/mcL BMP 08/18/18 14:44 Sodium 138 Potassium 4.0 Chloride 103 Carbon Dioxide 27 BUN 6 Creatinine 0.52 L Glucose 114 H Calcium 8.8 Cardiac Enzymes 08/18/18 Range/Units 14:44 Troponin I < 0.03 (< 0.04) ng/mL - Impressions ITS Impressions Chest X-Ray 08/18/18 14:27 IMPRESSION: Cardiomegaly and/or pericardial effusion, increased from 2015. Grossly clear lungs. D/ / Oli Gutierrez MD / Oli Gutierrez MD Interpreting Provider: Oli Gutierrez MD - Assessment and Plan (1) Atrial fibrillation with RVR Current Visit: Yes Status: Acute (2) HTN (hypertension) Current Visit: Yes Status: Chronic Qualifiers: Hypertension type: essential hypertension Qualified Code(s): I10 - Essential (primary) hypertension (3) DVT prophylaxis Current Visit: Yes Status: Acute (4) JOSELIN (obstructive sleep apnea) Current Visit: Yes Status: Chronic (5) Chest pain Current Visit: Yes Status: Acute Qualifiers: Chest pain type: other chest pain Qualified Code(s): R07.89 - Other chest pain; R07.8 - Other chest pain (6) CHF exacerbation Current Visit: Yes Status: Suspected Qualifiers: Heart failure type: diastolic Qualified Code(s): I50.33 - Acute on chronic diastolic (congestive) heart failure (7) SIRS (systemic inflammatory response syndrome) Current Visit: Yes Status: Acute (8) Prediabetes Current Visit: Yes Status: Chronic (9) Morbid obesity Current Visit: Yes Status: Chronic (10) COPD (chronic obstructive pulmonary disease) Current Visit: Yes Status: Chronic Qualifiers: COPD type: emphysema Emphysema type: unspecified Qualified Code(s): J43.9 - Emphysema, unspecified (11) Atrial fibrillation Current Visit: No Status: Acute Qualifiers: Atrial fibrillation type: persistent Qualified Code(s): I48.1 - Persistent atrial fibrillation - Time Spent With Patient Total time spent is greater than 50% in coordination of care (as documented) at patient's floor/unit and/or counseling patient: - Attending Attestation I examined this patient and my medical decision-making was reviewed with the Resident Physician on 08/18/18. I agree with the documented findings, di sposition and treatment plan as described except to the extent set forth below. Ms Darnell is 53 y/o female presented to ED with complaints of chest pain. Pain is atypical in nature with associated orthopnea and radiation to L shoulder. She was evaluated and placed in observation for further care. Exam Alert Comfortable at rest Mucus membranes dry Heart irreg and slightly tachy No wheeze abd soft and nontender Edema present Moves all extremities I/P 1. CP - stress test tomorrow 2. Chronic a fib 3. Morbid obesity Further diagnoses and plan as above.
[2018-08-18] MEDS ORDERED: Naloxone 0.4 MG/ML INJ IVP PRN (16:58)
[2018-08-18] MEDS ORDERED: Ondansetron 4 MG/2 ML VIAL IVP PRN (16:58)
[2018-08-18] MEDS ORDERED: Furosemide 40 MG/4 ML VIAL IVP SCH (18:00)
[2018-08-18] MEDS ORDERED: *HR* LORazepam 2 MG/ML VIAL IVP PRN ×3 (18:43)
[2018-08-18] MEDS: Folic Acid 1 MG TABLET PO SCH (19:55)
[2018-08-18] MEDS: Thiamine (B-1) 100 MG TABLET PO SCH (19:55)
[2018-08-18] MEDS: Budesonide/Formoterol 160/4.5 1 PUFF INH IH SCH (22:15)
[2018-08-19 01:52] LABS: Basophils % 0.8 %; Eosinophils # 0.1 K/mcL (0.0-0.6); Eosinophils % 2.4 %; Hematocrit 36.6 % (35.3-44.9); Hemoglobin 11.8 g/dL (11.5-15.4); Immature Granulocytes % 0.2 % (0-4); Lymphocytes # 1.2 K/mcL (0.6-4.6); Lymphocytes % 23.3 %; Mean Corpuscular HGB Conc 32.2 g/dL (31.6-35.5); Mean Corpuscular Volume 93.1 fL (83.0-100.0); Mean Platelet Volume 9.2 fL (9.4-12.4); Monocytes # 0.7 K/mcL (0.0-1.3); Monocytes % 14.4 %; Neutrophils # 2.9 K/mcL (1.6-8.9); Platelet Count 272 K/mcL (140-400); Red Blood Count 3.93 M/mcL (3.82-4.97); Red Cell Distribution Width 14.1 % (11.5-14.5); Segmented Neutrophils % 58.9 %
[2018-08-19 02:12] LABS: BUN/Creatinine Ratio 12 (6-26); Blood Urea Nitrogen 6 mg/dL (6-20); Carbon Dioxide 31 mEq/L (23-29); Chloride 104 mEq/L (98-107); Chol/HDL Ratio 2.3 (0-4.9); Cholesterol 159 mg/dL (< 200); Glucose 102 mg/dL (70-105); HDL Cholesterol 69 mg/dL (40-59); LDL Cholesterol,Calculated 77 mg/dL (0-99); Magnesium 1.8 mg/dL (1.6-2.6); Osmolality,Calculated 288 (280-300); Potassium 3.3 mEq/L (3.5-5.1); Sodium 140 mEq/L (136-145); Triglycerides 67 mg/dL (< 150); eGFR For Non-African Americans > 60 (> 60)
[2018-08-19] MEDS ORDERED: Regadenoson 0.4 MG/5 ML SYRINGE IVP ONE (05:58)
--- NOTE | 2018-08-19 07:50 | Internal Med Progress Note ---
<Luis Eduardo Burgess - Last Filed: 08/19/18 13:15> Hospitalist Progress Note - Encounter Date of Encounter: 08/19/18 Time of Encounter: 10:10 - Subjective Interval History: Patient was seen and examined at bedside at this morning. She states that overall she is feeling improved from admission yesterday. Her breathing has gotten easier and she is not getting as short of breath when she lays flat. She has had no return of her chest pain symptoms. She completed her echocardiogram and stress test this morning which are pending results. She tolerated these well with no reproduction of her symptoms. Once overnight - Exam Vitals: Temp Pulse Resp BP Pulse Ox 98.0 F 90 17 114/83 94 08/19/18 06:47 08/19/18 06:47 08/19/18 06:47 08/19/18 06:47 08/19/18 06:47 Exam: Gen.: Vitals noted. No acute distress. AAOx3, resting comfortably in bed. Morbidly obese HEENT: PERRL/EOMI, oropharynx clear, Normocephalic, atraumatic, MMM Cardiac: Irregularly irregular, mildly tachycardic, no murmur, +S1/S2, 2+ BLE edema- improved Pulmonary: Few scattered rhonchi, otherwise much improved aeration. equal chest expansion, unlabored breathing Abdomen: soft, mildly tender to palpation in left upper quadrant, BS noted, no guarding, no palpable HSM Skin: warm and dry, no visible lesions. MSK: ROM intact, no joint swelling noted, gait no assessed while in bed. Non tender calf or clubbing Neuro: A&Ox3, moves all extremities, no focal deficits, sensation intact Psych: Appropriate mood and behavior, AOx3 - Assessment and Plan (1) Chest pain Current Visit: Yes Status: Acute Assessment and Plan: - Patient reports atypical chest pain and history of present illness fluctuates - Patient describes both exertional and nonexertional chest pain - EKG in emergency department shows atrial fibrillation, no ST/T-wave changes. Troponin negative 3 - Etiology is suspicious for MSK, psychosomatic however alternative etiologies such as ACS, Shivani/myocarditis, GB disease are also considered - Only previous cardiac workup is echocardiogram on 07/04/18 shows preserved ejection fraction with indeterminate diastolic dysfunction. - Chest x-ray emergency department shows cardiomegaly versus pericardial effusion which is new from 2015 - Heart score 4 (age, risk, mildly suspicious) - Troponins negative 3 Plan - Repeat echocardiogram in the a.m. to rule out pericardial effusion, taken pending read - Nuclear stress test in AM- taken, pending results. Likely a 2 day stress test given her body habitus - Consider right upper quadrant ultrasound if pain persists - Pain is currently resolved, will continue monitor (2) CHF exacerbation Current Visit: Yes Status: Suspected Assessment and Plan: - Evidence of fluid overload on physical exam with edema however no JVD was noted - Appears to be improving given patient's clinical status. I/Os not recorded - BNP elevated at 192, however this is decreased from previous visits - Patient does describe symptoms orthopnea - Most recent echocardiogram on 07/04/18 shows ejection first of 55% with inde terminate diastolic dysfunction - Patient is at home Lasix 40 mg daily - Given that she is clinically presenting as a CHF exacerbation which is possibly complicated by OHS/JOSELIN, we will treat as CHF exacerbation and monitor for improvement - Decreased lasix 40 mg BID to daily Plan - Repeat echo, pending - Increase home lasix to 40 mg IV daily - Strict I/Os, fluid restrict to 2 L (3) Atrial fibrillation with RVR Current Visit: Yes Status: Resolved Assessment and Plan: - Known history of atrial fibrillation diagnosed in 2004 - Anticoagulation of Xarelto at home - Heart rate in the 110s on this admission which is possibly exacerbated by pain, dyspnea - Currently rate controlled - Etiology of atrial fibrillation likely related to pulmonary disease, body habitus/obesity - CHADVASC 3- female, chf, htn Plan - Continue home Cardizem, Xarelto (4) HTN (hypertension) Current Visit: Yes Status: Chronic Assessment and Plan: - Mildly elevated at 146/74 on most recent reading - On home Cardizem per patient- resumed today - Will continue to monitor and increase antihypertensives as necessary (5) Atrial fibrillation Current Visit: Yes Status: Chronic Assessment and Plan: As above (6) JOSELIN (obstructive sleep apnea) Current Visit: Yes Status: Chronic Assessment and Plan: - Patient reports noncompliance - CPAP (7) SIRS (systemic inflammatory response syndrome) Current Visit: Yes Status: Acute Assessment and Plan: - Met on admission with tachycardia, tachypnea - Resolved, mildly tachycardic but no tachypnea today - No obvious source of infection - Suspect this is most likely secondary to dyspnea and atrial fibrillation - We will not start antibiotics, will not obtain blood cultures - We will continue monitor this time (8) Prediabetes Current Visit: Yes Status: Chronic Assessment and Plan: - Per history - Glucose on admission of 114 - We will continue monitor and start insulin as needed - Given body habitus, advise dietary and exercise changes (9) Morbid obesity Current Visit: Yes Status: Chronic Assessment and Plan: BMI of 53 Advised dietary and exercise changes as outpatient (10) COPD (chronic obstructive pulmonary disease) Current Visit: Yes Status: Chronic Assessment and Plan: - Does not appear to be in acute exacerbation - Will continue home bronchodilators (11) Hypokalemia Current Visit: Yes Status: Acute Assessment and Plan: - Potassium 3.3 this morning, replenished with 40 mEq - May be related to increased diuresis - Magnesium of 1.8, will replenish as well - Continue to monitor (12) DVT prophylaxis Current Visit: Yes Status: Acute Assessment and Plan: Continue Tary Bolivar (13) Alcohol abuse Current Visit: Yes Status: Chronic Assessment and Plan: - Patient reports drinking 6-8 beers 3 times weekly - Last drink just prior to admission - CIWA scale started, scoring ones consistently - We will continue monitor for withdrawal at this time and likely discontinue or decrease neuro checks in near future - Time Spent with Patient Total time spent is greater than 50% in coordination of care (as documented) at patient's floor/unit and/or counseling patient: Internal Medicine: Result - Labs CBC & Chem 7: 08/19/18 01:25 08/19/18 01:25 Labs: Short CBC 08/18/18 08/19/18 Range/Units 14:44 01:25 WBC 4.5 4.9 (4.3-11.1) K/mcL Hgb 12.0 11.8 (11.5-15.4) g/dL Hct 37.4 36.6 (35.3-44.9) % Plt Count 282 272 (140-400) K/mcL Neutrophils # 3.2 2.9 (1.6-8.9) K/mcL BMP 08/18/18 08/19/18 14:44 01:25 Sodium 138 140 Potassium 4.0 3.3 L Chloride 103 104 Carbon Dioxide 27 31 H BUN 6 6 Creatinine 0.52 L 0.50 L Glucose 114 H 102 Calcium 8.8 9.0 Cardiac Enzymes 08/18/18 08/18/18 08/19/18 Range/Units 14:44 20:34 01:25 Troponin I < 0.03 < 0.03 < 0.03 (< 0.04) ng/mL - ABG Interpretation ABG results: PT/INR, D-dimer D-Dimer 245 ng/mLFEU (0-500) 08/18/18 14:44 - Impressions Impressions Chest X-Ray 08/18/18 14:27 IMPRESSION: Cardiomegaly and/or pericardial effusion, increased from 2015. Grossly clear lungs. D/ / Oli Gutierrez MD / Oli Gutierrez MD Interpreting Provider: Oli Gutierrez MD Consult Discharge Plan - Plan Referrals: Anthony Guo MD [Primary Care Provider] - 08/26/18 3:00 pm <Leeroy Chandler - Last Filed: 08/19/18 18:18> Hospitalist Progress Note - Encounter Date of Encounter: 08/19/18 - Exam Vitals: Temp Pulse Resp BP Pulse Ox 98.3 F 82 14 123/72 96 08/19/18 16:17 08/19/18 16:17 08/19/18 16:17 08/19/18 16:17 08/19/18 16:17 - Assessment and Plan (1) Atrial fibrillation with RVR Current Visit: Yes Status: Resolved (2) HTN (hypertension) Current Visit: Yes Status: Chronic (3) DVT prophylaxis Current Visit: Yes Status: Acute (4) Atrial fibrillation Current Visit: Yes Status: Chronic (5) JOSELIN (obstructive sleep apnea) Current Visit: Yes Status: Chronic (6) Chest pain Current Visit: Yes Status: Acute (7) CHF exacerbation Current Visit: Yes Status: Suspected (8) SIRS (systemic inflammatory response syndrome) Current Visit: Yes Status: Acute (9) Prediabetes Current Visit: Yes Status: Chronic (10) Morbid obesity Current Visit: Yes Status: Chronic (11) COPD (chronic obstructive pulmonary disease) Current Visit: Yes Status: Chronic (12) Hypokalemia Current Visit: Yes Status: Acute (13) Alcohol abuse Current Visit: Yes Status: Chronic - Time Spent with Patient Total time spent is greater than 50% in coordination of care (as documented) at patient's floor/unit and/or counseling patient: Internal Medicine: Result - Labs CBC & Chem 7: 08/19/18 01:25 08/19/18 01:25 Labs: Short CBC 08/19/18 Range/Units 01:25 WBC 4.9 (4.3-11.1) K/mcL Hgb 11.8 (11.5-15.4) g/dL Hct 36.6 (35.3-44.9) % Plt Count 272 (140-400) K/mcL Neutrophils # 2.9 (1.6-8.9) K/mcL BMP 08/19/18 01:25 Sodium 140 Potassium 3.3 L Chloride 104 Carbon Dioxide 31 H BUN 6 Creatinine 0.50 L Glucose 102 Calcium 9.0 Cardiac Enzymes 08/18/18 08/19/18 Range/Units 20:34 01:25 Troponin I < 0.03 < 0.03 (< 0.04) ng/mL - ABG Interpretation ABG results: PT/INR, D-dimer D-Dimer 245 ng/mLFEU (0-500) 08/18/18 14:44 - Attending Attestation I examined this patient and my medical decision-making was reviewed with the Resident Physician on 08/19/18. I agree with the documented findings, disposition and treatment plan as described except to the extent set forth below. Ms Bajwa is currently in observation for chest pain. Her stress test is 2 days. She remains moderate to high risk due to potential for worsening clinical status. Ms Bajwa is doing better overall. No fever or chills. No CP at this time. No GI issues. Exam Alert Comfortable Mucus membranes dry Heart reg No wheeze abd soft Less edema I/P 1. CP - 2 day stress test. Echo pending 2. HTN 3. Obesity Further diagnoses and plan as above. <Luis Eduardo Burgess - Last Filed: 08/19/18 13:15> (1) Chest pain Qualifiers: Chest pain type: other chest pain Qualified Code(s): R07.89 - Other chest pain; R07.8 - Other chest pain (2) CHF exacerbation Qualifiers: Heart failure type: diastolic Qualified Code(s): I50.33 - Acute on chronic diastolic (congestive) heart failure (4) HTN (hypertension) Qualifiers: Hypertension type: essential hypertension Qualified Code(s): I10 - Essential (primary) hypertension (5) Atrial fibrillation Qualifiers: Atrial fibrillation type: persistent Qualified Code(s): I48.1 - Persistent atrial fibrillation (10) COPD (chronic obstructive pulmonary disease) Qualifiers: COPD type: emphysema Emphysema type: unspecified Qualified Code(s): J43.9 - Emphysema, unspecified <Leeroy Chandler - Last Filed: 08/19/18 18:18> (2) HTN (hypertension) Qualifiers: Hypertension type: essential hypertension Qualified Code(s): I10 - Essential (primary) hypertension (4) Atrial fibrillation Qualifiers: Atrial fibrillation type: persistent Qualified Code(s): I48.1 - Persistent atrial fibrillation (6) Chest pain Qualifiers: Chest pain type: other chest pain Qualified Code(s): R07.89 - Other chest pain; R07.8 - Other chest pain (7) CHF exacerbation Qualifiers: Heart failure type: diastolic Qualified Code(s): I50.33 - Acute on chronic diastolic (congestive) heart failure (11) COPD (chronic obstructive pulmonary disease) Qualifiers: COPD type: emphysema Emphysema type: unspecified Qualified Code(s): J43.9 - Emphysema, unspecified
[2018-08-19] MEDS ORDERED: Perflutren Lipid Microsphere 1.3 ML in 0.9 % Sodium Chloride 8.7 ML IVP ONE (08:55)
[2018-08-19] MEDS ORDERED: Diltiazem CD (24hr) 180 MG CAPSULE PO SCH (09:00)
[2018-08-19] MEDS: Vitamin B Complex/Vit C/Vit E 1 EACH TABLET PO SCH (09:40)
[2018-08-19] MEDS: Furosemide 40 MG/4 ML VIAL IVP SCH (09:41)
[2018-08-19] MEDS: Thiamine (B-1) 100 MG TABLET PO SCH (09:41)
[2018-08-19] MEDS: Diltiazem CD (24hr) 180 MG CAPSULE PO SCH (09:41)
[2018-08-19] MEDS: Folic Acid 1 MG TABLET PO SCH (09:41)
[2018-08-19] MEDS: Budesonide/Formoterol 160/4.5 1 PUFF INH IH SCH ×2 (10:11→20:18)
[2018-08-19] MEDS: Tiotropium 18 MCG inhalation IH SCH (10:11)
[2018-08-19] MEDS ORDERED: Acetaminophen 325 MG TABLET PO PRN (13:14)
[2018-08-19] MEDS ORDERED: SIMETHICONE PO PRN (13:23)
[2018-08-19] MEDS ORDERED: [UNRECOGNIZED DRUG - OTHER] PO PRN (13:23)
[2018-08-19] MEDS ORDERED: CALCIUM CARBONATE PO PRN (13:23)
[2018-08-19] MEDS ORDERED: Simethicone 80 MG TAB.CHEW PO PRN (13:44)
[2018-08-19] MEDS ORDERED: *HR* Rivaroxaban 10 MG TABLET PO SCH (17:00)
[2018-08-20 02:28] LABS: INR 1.8; Prothrombin Time 19.9 Seconds (9.4-12.1)
[2018-08-20 02:34] LABS: BUN/Creatinine Ratio 22 (6-26); Blood Urea Nitrogen 11 mg/dL (6-20); Calcium 8.8 mg/dL (8.6-10.3); Carbon Dioxide 32 mEq/L (23-29); Chloride 101 mEq/L (98-107); Glucose 132 mg/dL (70-105); Osmolality,Calculated 291 (280-300); Potassium 3.6 mEq/L (3.5-5.1); Sodium 140 mEq/L (136-145); eGFR For Non-African Americans > 60 (> 60)
[2018-08-20] MEDS: Tiotropium 18 MCG inhalation IH SCH (08:23)
[2018-08-20] MEDS: Budesonide/Formoterol 160/4.5 1 PUFF INH IH SCH (08:24)
[2018-08-20] MEDS: Thiamine (B-1) 100 MG TABLET PO SCH (10:39)
[2018-08-20] MEDS: Vitamin B Complex/Vit C/Vit E 1 EACH TABLET PO SCH (10:40)
[2018-08-20] MEDS: Folic Acid 1 MG TABLET PO SCH (10:40)
[2018-08-20] MEDS: Diltiazem CD (24hr) 180 MG CAPSULE PO SCH (10:40)
[2018-08-20] MEDS: Furosemide 40 MG/4 ML VIAL IVP SCH (10:41)
[2018-08-20 10:55] VITALS: BP 155/96
--- NOTE | 2018-08-20 11:10 | Discharge Summary ---
<Leeroy Chandler - Last Filed: 08/20/18 16:29> Orders not resulted at time of discharge: Pending orders 08/18/18 17:04 NM jaci perf SPECT multi [NM] Routine 08/21/18 04:00 PT/INR [Prothrombin Time INR] [COAG] AM 0400 08/22/18 04:00 PT/INR [Prothrombin Time INR] [COAG] AM 0400 08/23/18 04:00 PT/INR [Prothrombin Time INR] [COAG] AM 0400 Date of Encounter: 08/20/18 - Discharge Diagnosis (1) Atrial fibrillation with RVR Status: Resolved (2) HTN (hypertension) Priority: Secondary Status: Chronic Qualifiers: Hypertension type: essential hypertension Qualified Code(s): I10 - Essential (primary) hypertension (3) DVT prophylaxis Status: Acute (4) Atrial fibrillation Priority: Secondary Status: Chronic Qualifiers: Atrial fibrillation type: persistent Qualified Code(s): I48.1 - Persistent atrial fibrillation (5) JOSELIN (obstructive sleep apnea) Priority: Secondary Status: Chronic (6) Chest pain Priority: Secondary Status: Resolved Qualifiers: Chest pain type: other chest pain Qualified Code(s): R07.89 - Other chest pain; R07.8 - Other chest pain (7) CHF exacerbation Priority: Primary Status: Suspected Qualifiers: Heart failure type: diastolic Qualified Code(s): I50.33 - Acute on chronic diastolic (congestive) heart failure (8) SIRS (systemic inflammatory response syndrome) Priority: Secondary Status: Resolved (9) Prediabetes Priority: Secondary Status: Chronic (10) Morbid obesity Priority: Secondary Status: Chronic (11) COPD (chronic obstructive pulmonary disease) Priority: Secondary Status: Chronic Qualifiers: COPD type: emphysema Emphysema type: unspecified Qualified Code(s): J43.9 - Emphysema, unspecified (12) Hypokalemia Priority: Secondary Status: Resolved (13) Alcohol abuse Priority: Secondary Status: Chronic Hospital course: Ms. Bajwa is a 53 year old female - Time Spent with Patient Total time spent providing and/or coordinating discharge services: - Discharge Medications Prescriptions: New Tiotropium [Spiriva] 18 mcg IH DAILYR inh Budesonide/Formoterol 160/4.5 [Symbicort 160/4.5] 1 puff IH BIDR inh Ipratropium/Albuterol Neb [Duoneb] 3 ml IH Q4HR #30 vial.neb Budesonide/Formoterol 160/4.5 [Symbicort 160/4.5] 1 puff IH BIDR #1 hfa.aer.ad Warfarin [Coumadin] 5 mg PO 1800 #10 tablet Budesonide Neb [Pulmicort Neb] 0.5 mg IH BIDR #30 ampul.neb Continue Cetirizine HCl [Zyrtec] 10 mg PO DAILY Rivaroxaban [Xarelto] 20 mg PO 1700 Calcium Carbonate/Simethicone [Antacid-[place] Tab Chew] 1 tab PO DAILY PRN PRN Reason: Indigestion Diltiazem HCl [Cardizem Cd] 360 mg PO DAILY #20 cap.er.24h Furosemide [Lasix] 40 mg PO DAILY #20 tablet Home Medications: Cetirizine HCl [Zyrtec] 10 mg PO DAILY 11/16/17 [History] Calcium Carbonate/Simethicone [Antacid-[place] Tab Chew] 1 tab PO DAILY PRN 08/19/18 [History] Rivaroxaban [Xarelto] 20 mg PO 1700 08/19/18 [History] Budesonide Neb [Pulmicort Neb] 0.5 mg IH BIDR #30 ampul.neb 08/20/18 [Rx] Budesonide/Formoterol 160/4.5 [Symbicort 160/4.5] 1 puff IH BIDR inh 08/20/18 [Rx] Budesonide/Formoterol 160/4.5 [Symbicort 160/4.5] 1 puff IH BIDR #1 hfa.aer.ad 08/20/18 [Rx] Diltiazem HCl [Cardizem Cd] 360 mg PO DAILY #20 cap.er.24h 08/20/18 [Rx] Furosemide [Lasix] 40 mg PO DAILY #20 tablet 08/20/18 [Rx] Ipratropium/Albuterol Neb [Duoneb] 3 ml IH Q4HR #30 vial.neb 08/20/18 [Rx] Tiotropium [Spiriva] 18 mcg IH DAILYR inh 08/20/18 [Rx] Warfarin [Coumadin] 5 mg PO 1800 #10 tablet 08/20/18 [Rx] Allergies/Adverse Reactions: Allergy/AdvReac Type Severity Reaction Status Date / Time No Known Allergies Allergy Verified 08/19/18 12:50 Date of admission: 08/18/18 17:17 Primary care physician: Anthony Guo MD Consults: 08/19/18 08:24 Consult to Nurse Navigator [CONS] Routine Comment: CHF - Constitutional Vitals: Temp Pulse Resp BP Pulse Ox 97.7 F 78 14 155/96 97 08/20/18 10:54 08/20/18 10:54 08/20/18 10:54 08/20/18 10:54 08/20/18 10:54 - Patient Status Disposition: Home, Self-Care Condition: Undetermined - Ambulatory Orders Ambulatory Orders: Prothrombin Time INR [COAG] Time Frame: 07/26/19, Facility: [facility], Location: Lab - Discharge Instructions Instructions: Diltiazem (By mouth), Furosemide (By mouth), Warfarin (By mouth), Budesonide (By breathing), Ipratropium/Albuterol (By breathing), [place] esonide/Formoterol (By breathing), Heart Failure (DC), Chest Pain (DC) Follow Up With: Luis Eduardo Burgess DO [Partnered Physician] - 09/01/18 2:00 pm Additional Instructions: Anticoagulation 08/27/2018: 8:15 First appointment will take about 45minutes to an hour Please bring bottle of Warafin to appointment and any OTC medications taken at home. We are located by [facility] at the [place] by [facility]. - Attending Attestation I examined this patient and my medical decision-making was reviewed with the Resident Physician on 08/20/18. I agree with the documented findings, disposition and treatment plan as described except to the extent set forth below. Ms Bajwa has been in observation for chest pain. She has had negative stress test and echo. She feels better and is ready for discharge home. She will be switched to coumadin at this time due to cost. Exam alert Comfortable Mucus membranes dry Heart irreg No wheeze Abd soft Plan D/C home today Follow up as outpatient. <Jarrett Corrigan - Last Filed: 08/20/18 19:59> - NOTES TO OUTPATIENT PROVIDER Notes to Outpatient Provider: -Patient was on xarelto for A. fib and has been now switched to Coumadin because of cost issues. -Patient needs to keep up with her Coumadin clinic appointments for INR monitoring. -She needs to be on cardiac diet for CHF exacerbation. -She needs to be emphasized upon the importance of being compliant on her CPAP to avoid hospitalizations in the future. Orders not resulted at time of discharge: Pending orders 08/18/18 17:04 NM jaci perf SPECT multi [NM] Routine 08/21/18 04:00 PT/INR [Prothrombin Time INR] [COAG] AM 0400 08/22/18 04:00 PT/INR [Prothrombin Time INR] [COAG] AM 0400 08/23/18 04:00 PT/INR [Prothrombin Time INR] [COAG] AM 0400 Date of Encounter: 08/20/18 Time of Encounter: 09:45 - Discharge Diagnosis (1) Atrial fibrillation with RVR Status: Resolved (2) HTN (hypertension) Status: Chronic Qualifiers: Hypertension type: essential hypertension Qualified Code(s): I10 - Essential (primary) hypertension (3) DVT prophylaxis Status: Acute (4) Atrial fibrillation Status: Chronic Qualifiers: Atrial fibrillation type: persistent Qualified Code(s): I48.1 - Persistent atrial fibrillation (5) JOSELIN (obstructive sleep apnea) Status: Chronic (6) Chest pain Status: Resolved Qualifiers: Chest pain type: other chest pain Qualified Code(s): R07.89 - Other chest pain; R07.8 - Other chest pain (7) CHF exacerbation Status: Suspected Qualifiers: Heart failure type: diastolic Qualified Code(s): I50.33 - Acute on chronic diastolic (congestive) heart failure (8) SIRS (systemic inflammatory response syndrome) Status: Resolved (9) Prediabetes Status: Chronic (10) Morbid obesity Status: Chronic (11) COPD (chronic obstructive pulmonary disease) Status: Chronic Qualifiers: COPD type: emphysema Emphysema type: unspecified Qualified Code(s): J43.9 - Emphysema, unspecified (12) Hypokalemia Status: Resolved (13) Alcohol abuse Status: Chronic Hospital course: Ms. Bajwa is a 53 year old female with past medical history of COPD, pre- diabetes, atrial fibrillation on Xarelto, depression who presented to the emergency department with chest pain, shortness of breath, nausea, vomiting, diaphoresis, chills this morning at approximately 10 AM. Patient described the chest pain as located substernally with some radiation to left shoulder. She denied any exacerbating or relieving factors. Patient also admitted to shortiness of breath particularly with exertion. Initial workup in the ED showed that the patient is afebrile,HR: 108, RR: 22, BNP: 192, EKG was negative for any ST-T changes.CXR showed cardiomegaly and/or pericardial effusion. She was admitted to the floor for further management. During her hospital stay she had an echocardiogram which showed an LVEF of 60%, but no pericardial effusion. She was given 40 mg Lasix daily for her CHF exacerbation, diltiazem and xarelto for her Afib, continue with her home on bronchodilators for COPD patient also had a nuclear stress test which was negative for any ischemia or infarct. Patient was deemed hemodynamically stable on day 3 of her hospital stay and was discharged on Coumadin because of financial constraints - Time Spent with Patient Total time spent providing and/or coordinating discharge services: Date of admission: 08/18/18 17:17 Primary care physician: Anthony Guo MD Consults: 08/19/18 08:24 Consult to Nurse Navigator [CONS] Routine Comment: CHF - Constitutional Vitals: Temp Pulse Resp BP Pulse Ox 97.7 F 78 14 155/96 97 08/20/18 10:54 08/20/18 10:54 08/20/18 10:54 08/20/18 10:54 08/20/18 10:54 Exam: Gen.: Vitals noted. No acute distress. AAOx3, resting comfortably in bed. Morbidly obese HEENT: PERRL/EOMI, oropharynx clear, Normocephalic, atraumatic, MMM Cardiac: Irregularly irregular rate controlled, mildly tachycardic, no murmur, +S1/S2, 2+ BLE edema- improved Pulmonary: Few scattered rhonchi, otherwise much improved aeration. equal chest expansion, unlabored breathing Abdomen: soft, mildly tender to palpation in left upper quadrant, BS noted, no guarding, no palpable HSM Skin: warm and dry, no visible lesions. MSK: ROM intact, no joint swelling noted, gait no assessed while in bed. Non tender calf or clubbing Neuro: A&Ox3, moves all extremities, no focal deficits, sensation intact Psych: Appropriate mood and behavior, AOx3 - Patient Status Overall status at discharge: patient is progressing back to baseline - Diet and Activity Activity: increase activity as tolerated Diet: low salt diet
--- NOTE | 2018-08-20 12:00 | Electrocardiograph Report ---
[place] [id number] Test Date: 2018-08-18 Pat Name: Lita Bajwa Department: EXAM8 Room: 3B14 Gender: F Network Support Administrator: : 1965 Requested By: Adonay Schmitz Order Number: [id number] Reading MD: Real Knott Measurements Intervals [place] Rate: 109 P: NC: QRS: 101 QRSD: 85 T: 2 QT: 359 QTc: 484 Interpretive Statements Atrial fibrillation Ventricular premature complex Low voltage, extremity and precordial leads Electronically Signed On 08-20-2018 11:58:47 EDT by Real Knott
[2018-08-20] MEDS ORDERED: Warfarin perPT PO PRN (18:00)
== END 2018-08-20 16:30 | disposition home or self-care (01) ==
LOC: EMEROOARM 14:17 → 3BNU 14:17 → SUATTDRO 17:17 → 3BNU 17:37
PROVIDERS: ADMIT Internal Medicine; ATTEND Internal Medicine

== ENCOUNTER 2018-11-17 13:42 | Observation (INO) ==
[2018-11-17 14:53] LABS: Basophils % 0.7 %; Eosinophils # 0.1 K/mcL (0.0-0.6); Eosinophils % 2.1 %; Hematocrit 38.3 % (35.3-44.9); Hemoglobin 12.2 g/dL (11.5-15.4); Immature Granulocytes % 0.4 % (0-4); Lymphocytes # 0.7 K/mcL (0.6-4.6); Lymphocytes % 12.3 %; Mean Corpuscular HGB Conc 31.9 g/dL (31.6-35.5); Mean Corpuscular Hemoglobin 29.3 pg (28.0-33.3); Mean Corpuscular Volume 91.8 fL (83.0-100.0); Mean Platelet Volume 9.2 fL (9.4-12.4); Monocytes # 0.5 K/mcL (0.0-1.3); Monocytes % 8.1 %; Neutrophils # 4.4 K/mcL (1.6-8.9); Platelet Count 265 K/mcL (140-400); Red Blood Count 4.17 M/mcL (3.82-4.97); Red Cell Distribution Width 14.1 % (11.5-14.5); Segmented Neutrophils % 76.4 %; White Blood Count 5.7 K/mcL (4.3-11.1)
[2018-11-17 15:00] LABS: INR 1.8
--- NOTE | 2018-11-17 15:19 | Emergency Department Note ---
Disposition Clinical Impression: Chest pain Qualifiers: Chest pain type: unspecified Qualified Code(s): R07.9 - Chest pain, unspecified Disposition: Admitted As Inpatient Time of Disposition: 20:51 General Adult HPI - General Chief complaint: ED Chest Pain Stated complaint: CP,A-Fib Time Seen by Provider: 11/17/18 13:48 Source: patient Limitations: no limitations Nursing Notes Reviewed: Yes Vital Signs Reviewed: Yes - History of Present Illness HPI Narrative: Presents with chest pain which is left-sided and a tightness and intermittent for the last number of hours since she woke up this morning and does radiate to the left arm with some numbness of the left arm. No numbness or weakness of the left leg. No drooping of the face. No slurred speech. She also does have mild headache for the last 5 days which is bitemporal and a pressure feeling was present she woke up 5 days ago and is constant and she has had identical headaches in the past. No numbness or weakness of the extremities besides the left arm as stated. No slurred speech, facial droop or confusion. She does have some lightheadedness. Does have a history of congestive heart failure and swelling bilateral lower extremities but no increased weight gain recently. She does have orthopnea. She does not have any vertigo. Social history: Nonsmoker, over the last week she has drank between 10 and 12 beers. Can sometimes drink this much per day but has not recently been drinking this much. Pain Scale: 4 - Related Data Previous Rx's Medication Instructions Recorded Budesonide Neb [Pulmicort Neb] 0.5 mg IH BIDR #30 ampul.neb 08/20/18 Budesonide/Formoterol 160/4.5 1 puff IH BIDR inh 08/20/18 [Symbicort 160/4.5] Budesonide/Formoterol 160/4.5 1 puff IH BIDR #1 hfa.aer.ad 08/20/18 [Symbicort 160/4.5] Diltiazem HCl [Cardizem Cd] 360 mg PO DAILY #20 cap.er.24h 08/20/18 Furosemide [Lasix] 40 mg PO DAILY #20 tablet 08/20/18 Ipratropium/Albuterol Neb [Duoneb] 3 ml IH Q4HR #30 vial.neb 08/20/18 Tiotropium [Spiriva] 18 mcg IH DAILYR inh 08/20/18 Warfarin [Coumadin] 5 mg PO 1800 #10 tablet 08/20/18 Allergies Allergy/AdvReac Type Severity Reaction Status Date / Time No Known Allergies Allergy Verified 11/17/18 13:43 Review of Systems: Constitutional: No fever Vision: No blurred vision ENT: + rhinorrhea Respiratory: Does have chronic cough secondary to her COPD and this is unchanged from baseline, Allergic: No allergies : No blood in urine GI: No blood in stool Hematologic: No bruising Dermatologic: No skin rash Musculoskeletal: No pain in the extremities Neuro: + numbness of the extremities Past Medical History - Past Medical History Medical history: Reports: atrial fibrillation, COPD, diabetes, hypertension, other Surgical history: Reports: hysterectomy, other Psychiatric history: Reports: depression - Social History Smoking Status: Former smoker Smokeless Tobacco Status: No Alcohol use: Reports: occasionally Drug use: Reports: none Physical Exam CONSTITUTIONAL: Well-appearing; well-nourished; A&O X3, in no apparent distress HEAD: Normocephalic; atraumatic. EYES: PERRL, EOMI, no scleral icterus NOSE: The nose is normal in appearance without rhinorrhea NECK: Supple without rigidity, no JOHNNA RESP: Normal chest excursion with respiration; breath sounds clear and equal bilaterally; no wheezes, rhonchi, or rales CARD: Regular rhythm, without murmurs, rub or gallop chest: No pain with palpation anterior chest wall ABD: Non-distended; non-tender, soft, without rigidity, rebound or guarding SKIN: Normal for age and race; warm and dry; no apparent lesions, no rash NEUROLOGICAL: Patient is alert and oriented times three. Cranial nerves III- XII are intact. Sensory and motor functions are intact. Strength is 5/5 for flexion and extension in all 4 extremities. Finger to nose testing is equal and normal bilaterally. Extremities: Pulses 2+ and equal in all 4 extremities. 2+ bilateral symmetric lower extremity pretibial pitting edema - General Limitations: no limitations General appearance: alert, in no apparent distress Course Vital Signs Temperature 98.6 F 11/17/18 13:45 Pulse Rate 99 11/17/18 13:45 Respiratory Rate 20 11/17/18 13:45 Blood Pressure 161/89 11/17/18 13:45 O2 Sat by Pulse Oximetry 97 11/17/18 13:45 Temperature 98.5 F 11/17/18 18:11 Pulse Rate 82 11/17/18 18:11 Respiratory Rate 17 11/17/18 18:11 Blood Pressure 149/81 11/17/18 18:11 O2 Sat by Pulse Oximetry 96 11/17/18 18:11 Oxygen Delivery Oxygen Delivery Room Air Medical Decision Making - MDM Narrative Medical decision making narrative: I did review the patient's EKG showing atrial fibrillation with a rate of 83 without acute ischemic change and the patient's symptoms are concerning for acute coronary syndrome exacerbation and CHF and labs including BNP are pending and patient will likely be admitted with her symptoms and her lower extremity edema. Chest x-ray pending. Lab test results pending. 1520 Patient will be admitted. I did review the test results. Concern for acute coronary syndrome. 1603 - Medical Records Medical records reviewed: Yes I reviewed the patient's medical records. - Lab Data Lab results reviewed: Yes I reviewed the patient's lab results. Result diagrams: 11/17/18 14:28 11/17/18 14:28 Lab Results 11/17/18 11/17/18 11/17/18 Range/Units 14:28 14:28 14:28 WBC 5.7 (4.3-11.1) K/mcL RBC 4.17 (3.82-4.97) M/mcL Hgb 12.2 (11.5-15.4) g/dL Hct 38.3 (35.3-44.9) % MCV 91.8 (83.0-100.0) fL MCH 29.3 (28.0-33.3) pg MCHC 31.9 (31.6-35.5) g/dL RDW 14.1 (11.5-14.5) % Plt Count 265 (140-400) K/mcL MPV 9.2 L (9.4-12.4) fL Immature Gran % 0.4 (0-4) % Seg Neutrophils % 76.4 % Lymphocytes % 12.3 % Monocytes % 8.1 % Eosinophils % 2.1 % Basophils % 0.7 % Neutrophils # 4.4 (1.6-8.9) K/mcL Lymphocytes # 0.7 (0.6-4.6) K/mcL Monocytes # 0.5 (0.0-1.3) K/mcL Eosinophils # 0.1 (0.0-0.6) K/mcL Basophils # 0.0 (0.0-0.2) K/mcL PT 21.0 H (9.4-12.1) Seconds INR 1.8 Sodium 141 (136-145) mEq/L Potassium 4.3 (3.5-5.1) mEq/L Chloride 104 (98-107) mEq/L Carbon Dioxide 29 (23-29) mEq/L BUN 6 (6-20) mg/dL Creatinine 0.54 L (0.60-1.20) mg/dL Est GFR ( Amer) > 60 (> 60) Est GFR (Non-Af Amer) > 60 (> 60) BUN/Creatinine Ratio 11 (6-26) Glucose 111 H (70-105) mg/dL Calculated Osmolality 290 (280-300) Calcium 8.9 (8.6-10.3) mg/dL Troponin I < 0.03 (< 0.04) ng/mL B-Natriuretic Peptide (Less than 100) pg/mL 11/17/18 Range/Units 14:28 WBC (4.3-11.1) K/mcL RBC (3.82-4.97) M/mcL Hgb (11.5-15.4) g/dL Hct (35.3-44.9) % MCV (83.0-100.0) fL MCH (28.0-33.3) pg MCHC (31.6-35.5) g/dL RDW (11.5-14.5) % Plt Count (140-400) K/mcL MPV (9.4-12.4) fL Immature Gran % (0-4) % Seg Neutrophils % % Lymphocytes % % Monocytes % % Eosinophils % % Basophils % % Neutrophils # (1.6-8.9) K/mcL Lymphocytes # (0.6-4.6) K/mcL Monocytes # (0.0-1.3) K/mcL Eosinophils # (0.0-0.6) K/mcL Basophils # (0.0-0.2) K/mcL PT (9.4-12.1) Seconds INR Sodium (136-145) mEq/L Potassium (3.5-5.1) mEq/L Chloride (98-107) mEq/L Carbon Dioxide (23-29) mEq/L BUN (6-20) mg/dL Creatinine (0.60-1.20) mg/dL Est GFR ( Amer) (> 60) Est GFR (Non-Af Amer) (> 60) BUN/Creatinine Ratio (6-26) Glucose (70-105) mg/dL Calculated Osmolality (280-300) Calcium (8.6-10.3) mg/dL Troponin I (< 0.04) ng/mL B-Natriuretic Peptide 160 H (Less than 100) pg/mL - Radiology Data Radiology results reviewed: Yes I reviewed the patient's radiology results.
[2018-11-17 15:37] LABS: BUN/Creatinine Ratio 11 (6-26); Blood Urea Nitrogen 6 mg/dL (6-20); Calcium 8.9 mg/dL (8.6-10.3); Carbon Dioxide 29 mEq/L (23-29); Chloride 104 mEq/L (98-107); Glucose 111 mg/dL (70-105); Osmolality,Calculated 290 (280-300); Potassium 4.3 mEq/L (3.5-5.1); Sodium 141 mEq/L (136-145); Troponin I < 0.03 ng/mL (< 0.04); eGFR For African Americans > 60 (> 60); eGFR For Non-African Americans > 60 (> 60)
[2018-11-17] MEDS ORDERED: *HR* HYDROcodone/Acet 5/325 mg TABLET PO PRN (18:37)
[2018-11-17] MEDS ORDERED: Naloxone 0.4 MG/ML INJ IVP PRN (18:37)
[2018-11-17] MEDS ORDERED: Ondansetron 4 MG/2 ML VIAL IVP PRN (18:37)
[2018-11-17] MEDS ORDERED: Acetaminophen 325 MG TABLET PO PRN (18:37)
--- NOTE | 2018-11-17 18:37 | Internal Med History&Physical ---
Date of Encounter: 11/17/18 Time of Encounter: 18:37 Internal Medicine - H&P: HPI Chief complaint: chest pain History of present illness: Ms. Bajwa is a 53 year old female with past medical history of COPD, pre- diabetes, atrial fibrillation on Coumadin, depression who presented to the emergency department with chest pain. reviewing the patient's record revealed th at she was recently admitted to the hospital and coronary artery disease workup and her stress test was negative, echocardiogram which showed an LVEF of 60%, but no pericardial effusion. The patient presented today with intermittent chest pain that radiated to her left arm associated with palpitation and lightheadedness. The patient denies orthopnea, paroxysmal nocturnal dyspnea or progressive worsening of lower extremity edema. The patient was evaluated by the ER staff and EKG first set was as no significant abnormalities, first set of cardiac enzymes was within normal. The patient was admitted for further evaluation and management and to rule out acute coronary syndrome. Past Med Surg Social Fam HX - Past Medical History Medical history: atrial fibrillation, COPD, diabetes, hypertension, other Additional medical history: depression, insomniqa Psychiatric history: depression - Past Surgical History Surgical History: hysterectomy, other Additional surgical history: partial hysterectomy - Social History Smoking Status: Former smoker Smokeless Tobacco Status: No Alcohol use: occasionally Drug use: none - Family History Mother Adopted: No Family Member Ethnicity: Non- Hx Family Cardiac Disorders: Yes (CHF) Hx Family Respiratory Disorders: Yes (COPD) Father Adopted: No Family Member Ethnicity: Non- Living Status: Hx Family Cardiac Disorders: No Hx Family Respiratory Disorders: No Hx Family Cancer: Yes (oak cell) Hx Family GI Disorders: No Internal Medicine - H&P: Meds Budesonide Neb [Pulmicort Neb] 0.5 mg IH BIDR #30 ampul.neb 08/20/18 [Rx] Budesonide/Formoterol 160/4.5 [Symbicort 160/4.5] 1 puff IH BIDR #1 hfa.aer.ad 08/20/18 [Rx] Diltiazem HCl [Cardizem Cd] 360 mg PO DAILY #20 cap.er.24h 08/20/18 [Rx] Furosemide [Lasix] 40 mg PO DAILY #20 tablet 08/20/18 [Rx] Ipratropium/Albuterol Neb [Duoneb] 3 ml IH Q4HR #30 vial.neb 08/20/18 [Rx] Tiotropium [Spiriva] 18 mcg IH DAILYR inh 08/20/18 [Rx] Warfarin [Coumadin] 5 mg PO 1800 #10 tablet 08/20/18 [Rx] Isosorbide MONOnitrate (24 HR) [Imdur] 30 mg PO DAILY #30 tab.er.24h 11/18/18 [Rx] Metoprolol [Lopressor] 25 mg PO BID #60 tablet 11/18/18 [Rx] Allergy/AdvReac Type Severity Reaction Status Date / Time No Known Allergies Allergy Verified 11/17/18 13:43 All Systems PM: A 10-system review of systems was performed and is negative for pertinent findings except as documented above in the HPI. - Constitutional Vitals: Temp Pulse Resp BP Pulse Ox 98.5 F 82 17 149/81 96 11/17/18 18:11 11/17/18 18:11 11/17/18 18:11 11/17/18 18:11 11/17/18 18:11 General appearance: Present: A&O X 3 Exam: . - Head Head exam: Present: atraumatic, normocephalic - Respiratory Respiratory exam: Present: rhonchi. Absent: accessory muscle use, rales, wheezes - Cardiovascular Cardiovascular exam: Present: +S1, +S2. Absent: diastolic murmur, gallop, rubs, systolic murmur - GI/Abdominal GI/Abdominal exam: Present: normal bowel sounds, soft, no peritoneal signs. Absent: distended, tenderness - Extremities Exam Extremities exam: Present: warm, radial pulses palpable and symmetrical. Absent: calf tenderness, cyanotic, pedal edema Internal Med - H&P Results - Labs CBC & Chem 7: 11/18/18 00:05 11/18/18 00:05 Labs: Short CBC 11/17/18 Range/Units 14:28 WBC 5.7 (4.3-11.1) K/mcL Hgb 12.2 (11.5-15.4) g/dL Hct 38.3 (35.3-44.9) % Plt Count 265 (140-400) K/mcL Neutrophils # 4.4 (1.6-8.9) K/mcL BMP 11/17/18 14:28 Sodium 141 Potassium 4.3 Chloride 104 Carbon Dioxide 29 BUN 6 Creatinine 0.54 L Glucose 111 H Calcium 8.9 Cardiac Enzymes 11/17/18 Range/Units 14:28 Troponin I < 0.03 (< 0.04) ng/mL - Impressions ITS Impressions Chest X-Ray 11/17/18 14:06 IMPRESSION: Slight cardiomegaly. Clear lungs. No acute abnormality. No significant change from the prior study. D/ / Hipolito Anderson MD / Hipolito Anderson MD Interpreting Provider: Hipolito Anderson MD - Assessment and Plan (1) Chest pain Status: Acute Assessment and plan: Reviewing the patient's record revealed that she was recently admitted to the hospital and coronary artery disease workup and her stress test was negative, echocardiogram which showed an LVEF of 60%, but no pericardial effusion. DD Muskuloskeletal CP - myofascial strain, costochondritis, Esophageal spasm PLAN: - cardiac enzymes x 2 q 8 hr - EKG now and in AM - ASA - O2 by NC to keep SpO2 greater than 92% - UA - CBCD, BMP in AM - Fasting lipids - 2D Echo Qualifiers: Chest pain type: unspecified Qualified Code(s): R07.9 - Chest pain, unspecified (2) COPD (chronic obstructive pulmonary disease) Status: Chronic Assessment and plan: we will continue home regimen Qualifiers: COPD type: emphysema Emphysema type: unspecified Qualified Code(s): J43.9 - Emphysema, unspecified (3) JOSELIN (obstructive sleep apnea) Status: Chronic Assessment and plan: CPAP at night (4) HTN (hypertension) Status: Chronic Assessment and plan: we'll continue antihypertensive meds and continue to monitor blood pressure while inpatient end of this regimen accordingly Qualifiers: Hypertension type: essential hypertension Qualified Code(s): I10 - Essential (primary) hypertension (5) Atrial fibrillation Status: Chronic Assessment and plan: The patient reports some palpitation, but now her heart rate is controlled. We'll continue anticoagulation with warfarin Qualifiers: Atrial fibrillation type: persistent Qualified Code(s): I48.1 - Persistent atrial fibrillation (6) Chronic back pain Status: Chronic Qualifiers: Qualified Code(s): M54.9 - Dorsalgia, unspecified; G89.29 - Other chronic p ain (7) Prediabetes Status: Chronic Assessment and plan: The patient had history of prediabetes in the sitting of morbid obesity, we'll obtain hemoglobin A1c (8) DVT prophylaxis Status: Acute Assessment and plan: the patient is on chronic anticoagulation with warfarin - Time Spent With Patient Total time spent is greater than 50% in coordination of care (as documented) at patient's floor/unit and/or counseling patient:
[2018-11-17] MEDS ORDERED: Perflutren Lipid Microsphere 1.3 ML in 0.9 % Sodium Chloride 8.7 ML IVP ONE (22:02)
[2018-11-18 00:40] LABS: Basophils % 0.4 %; Eosinophils # 0.2 K/mcL (0.0-0.6); Eosinophils % 2.9 %; Hemoglobin 11.5 g/dL (11.5-15.4); Immature Granulocytes % 0.4 % (0-4); Lymphocytes % 18.4 %; Mean Corpuscular HGB Conc 31.1 g/dL (31.6-35.5); Mean Corpuscular Hemoglobin 29.1 pg (28.0-33.3); Mean Corpuscular Volume 93.7 fL (83.0-100.0); Mean Platelet Volume 9.4 fL (9.4-12.4); Monocytes # 0.7 K/mcL (0.0-1.3); Monocytes % 12.3 %; Neutrophils # 3.7 K/mcL (1.6-8.9); Platelet Count 257 K/mcL (140-400); Red Blood Count 3.95 M/mcL (3.82-4.97); Red Cell Distribution Width 14.3 % (11.5-14.5); Segmented Neutrophils % 65.6 %; White Blood Count 5.6 K/mcL (4.3-11.1)
[2018-11-18 00:50] LABS: Alanine Aminotransferase 14 Units/L (7-52); Albumin 3.6 g/dL (3.5-5.7); Albumin/Globulin Ratio 1.3 (1.1-2.2); Alkaline Phosphatase 63 Units/L (34-104); Aspartate Amino Transferase 13 Units/L (13-39); BUN/Creatinine Ratio 11 (6-26); Bilirubin,Total 0.8 mg/dL (0.3-1.0); Blood Urea Nitrogen 7 mg/dL (6-20); Calcium 8.8 mg/dL (8.6-10.3); Carbon Dioxide 31 mEq/L (23-29); Chloride 104 mEq/L (98-107); Chol/HDL Ratio 2.2 (0-4.9); Cholesterol 145 mg/dL (< 200); Globulin 2.7 g/dL (2.4-3.5); Glucose 117 mg/dL (70-105); HDL Cholesterol 65 mg/dL (40-59); LDL Cholesterol,Calculated 67 mg/dL (0-99); Magnesium 1.9 mg/dL (1.6-2.6); Osmolality,Calculated 291 (280-300); Phosphorous 3.5 mg/dL (2.7-4.5); Potassium 3.8 mEq/L (3.5-5.1); Sodium 141 mEq/L (136-145); Total Protein 6.3 g/dL (6.4-8.9); Triglycerides 64 mg/dL (< 150); eGFR For African Americans > 60 (> 60); eGFR For Non-African Americans > 60 (> 60)
[2018-11-18 01:09] LABS: INR 1.7; Prothrombin Time 19.1 Seconds (9.4-12.1)
[2018-11-18 01:10] LABS: Activated Partial Thrombo Time 33.7 Seconds (26.0-36.0)
[2018-11-18] MEDS ORDERED: Regadenoson 0.4 MG/5 ML SYRINGE IVP ONE (06:17)
[2018-11-18] MEDS: Ipratropium/Albuterol Neb 3 ML IH SCH ×3 (08:25→15:32)
[2018-11-18] MEDS ORDERED: Furosemide 40 MG TABLET PO SCH (09:00)
[2018-11-18] MEDS ORDERED: Diltiazem CD (24hr) 180 MG CAPSULE PO SCH (09:00)
[2018-11-18] MEDS ORDERED: Budesonide/Formoterol 160/4.5 1 PUFF INH IH SCH ×2 (10:00)
[2018-11-18] MEDS ORDERED: Budesonide Neb 0.5 MG/2 ML IH SCH (10:00)
[2018-11-18] MEDS ORDERED: Tiotropium 18 MCG inhalation IH SCH (10:00)
[2018-11-18 11:16] VITALS: BP 145/103
--- NOTE | 2018-11-18 12:19 | Cardiology Consult Note ---
<Rich Linda - Last Filed: 11/18/18 12:49> Date of Encounter: 11/18/18 Time of Encounter: 12:15 Assessment and Plan (1) Chest pain Status: Acute Per Cardiology: Troponins negative 4. Negative nuclear stress test July 2017. Echo 06/2018: EF 55% indeterminant diastolic dysfunction, mild MR, moderately dilated left atrium, mild pulmonary hypertension, NSWMA. Current echo shows EF preserved. Symptoms seem to correlate with A. fib. Average heart rate on telemetry the past 12 hours 95 and blood pressure not well controlled. I discussed with patient possible medication management for better blood pressure optimization and A. fib rate control and outpatient follow-up. Patient seems agreeable. Will discuss with Dr. Guaman potential need for further inpatient ischemic evaluation in terms of left heart catheterization. Qualifiers: Qualified Code(s): R07.9 - Chest pain, unspecified (2) Atrial fibrillation Status: Chronic Per Cardiology: Report should PAF since around 2004. On Cardizem CD 360 mg by mouth daily. Systolic blood pressures elevated and heart rate still fluctuating 90s to 100s. We will add Lopressor 25 mg by mouth twice a day. Titrate beta arin as needed. Regarding long-term anticoagulation, anticoagulated with Coumadin be followed by PCP. Current INR 1.7. Target INR 2.0-3.0. Qualifiers: Atrial fibrillation type: persistent Qualified Code(s): I48.1 - Persistent atrial fibrillation (3) JOSELIN (obstructive sleep apnea) Status: Chronic Per Cardiology: Compliance reinforced. (4) HTN (hypertension) Status: Chronic Per Cardiology: Remains elevated. We will add beta arin and titrate as needed. Qualifiers: Hypertension type: essential hypertension Qualified Code(s): I10 - Essential (primary) hypertension Discussion w patient/family: The assessment and plan as outlined above was discussed with the patient and/or family members who expressed understanding and agreement. All questions were answered. Thank you for involving us in the care of your patient. Please call with any questions. History of Present Illness Consult date: 11/18/18 Requesting physician: Susan Ortega Consult reason: CP Chief complaint: CP History of present illness: Previous medical records reviewed: "Ms. Bajwa is a 53 year old female with past medical history of COPD, pre- diabetes, atrial fibrillation on Coumadin, depression who presented to the emergency department with chest pain. reviewing the patient's record revealed that she was recently admitted to the hospital and coronary artery disease workup and her stress test was negative, echocardiogram which showed an LVEF of 60%". Cardiology consult for chest pain. Patient reports intermittent chest pain symptoms ongoing now for many months usually occur with exertion and she seems to report to occur with her atrial fibrillation "acting up". She states symptoms sometimes in the right side of her chest and other times the middle to left side of her chest. She describes symptoms as occasionally sharp/stabbing at other times pressure/heaviness. She locates she does feel short of breath with some palpitations with symptoms. Nev er had left heart catheterization. Reports has had atrial fibrillation since around 2004. Currently on anticoagulation of Coumadin, previously on Xarelto but stopped due to cost constraints. Currently takes Cardizem CD 360 mg by mouth daily at home. Reports compliance. Past history of smoking about a pack to pack and a half day for about 8 years last smoked 29 years ago. Denies any family history. Has history of hypertension, obesity, JOSELIN, prediabetes. Previously saw Dr. Allison with Cardiology. Currently chest pain-free. Denies any active bleeding or blood loss. Past Med Surg Social Fam HX - Past Medical History Attestation: Yes The following information was validated with the patient. Source: patient, old records reviewed Medical history: atrial fibrillation, COPD, diabetes, hypertension, other Additional medical history: depression, insomniqa Psychiatric history: depression - Past Surgical History Surgical History: hysterectomy, other Additional surgical history: partial hysterectomy - Social History Smoking Status: Former smoker Smokeless Tobacco Status: No Alcohol use: occasionally Drug use: none - Family History Mother Adopted: No Family Member Ethnicity: Non- Hx Family Cardiac Disorders: Yes (CHF) Hx Family Respiratory Disorders: Yes (COPD) Father Adopted: No Family Member Ethnicity: Non- Living Status: Hx Family Cardiac Disorders: No Hx Family Respiratory Disorders: No Hx Family Cancer: Yes (oak cell) Hx Family GI Disorders: No Medications and Allergies Budesonide Neb [Pulmicort Neb] 0.5 mg IH BIDR #30 ampul.neb 08/20/18 [Rx] Budesonide/Formoterol 160/4.5 [Symbicort 160/4.5] 1 puff IH BIDR #1 hfa.aer.ad 08/20/18 [Rx] Diltiazem HCl [Cardizem Cd] 360 mg PO DAILY #20 cap.er.24h 08/20/18 [Rx] Furosemide [Lasix] 40 mg PO DAILY #20 tablet 08/20/18 [Rx] Ipratropium/Albuterol Neb [Duoneb] 3 ml IH Q4HR #30 vial.neb 08/20/18 [Rx] Tiotropium [Spiriva] 18 mcg IH DAILYR inh 08/20/18 [Rx] Warfarin [Coumadin] 5 mg PO 1800 #10 tablet 08/20/18 [Rx] Isosorbide MONOnitrate (24 HR) [Imdur] 30 mg PO DAILY #30 tab.er.24h 11/18/18 [Rx] Metoprolol [Lopressor] 25 mg PO BID #60 tablet 11/18/18 [Rx] Allergy/AdvReac Type Severity Reaction Status Date / Time No Known Allergies Allergy Verified 11/17/18 13:43 All Systems Review: The remainder of the systems were reviewed and are negative - Cardiovascular Cardiovascular: as per HPI, chest pain with exertion, dyspnea on exertion, palpitations, rapid heart rate Physical Examination Vital Signs, Last 4 Hours Temp Pulse Resp BP Pulse Ox 11/18/18 11:15 98.5 F 96 16 145/103 93 11/18/18 08:25 16 93 General: Conversant, No Apparent Distress HEENT: Atraumatic, Normocephaly, Mucus Membranes Moist Neck: No JVD, Normal carotid pulses Cardiac: Normal S1 and S2, No Murmur, Other (Irregularly irregular) Lungs: Normal Breath Sounds, No Wheeze, Rales, Rhonchi Neuro: Alert and responsive, No focal deficits noted Abdomen: Soft, Non-Tender Skin: No rashes noted on visualized skin Musculoskeletal: No Chest Wall Tenderness Extremities: No Clubbing, No Cyanosis, No Edema, Normal Pulses Results 11/18/18 00:05 11/18/18 00:05 Lab Results Laboratory Tests 11/17/18 11/17/18 11/17/18 14:28 14:28 21:05 Hgb Hct INR Creatinine Est GFR (Non-Af Amer) Troponin I < 0.03 < 0.03 B-Natriuretic Peptide 160 H LDL Cholesterol, Calc 11/18/18 11/18/18 11/18/18 00:05 00:05 00:05 Hgb 11.5 Hct 37.0 INR 1.7 Creatinine Est GFR (Non-Af Amer) Troponin I < 0.03 B-Natriuretic Peptide LDL Cholesterol, Calc 11/18/18 11/18/18 00:05 07:01 Hgb Hct INR Creatinine 0.61 Est GFR (Non-Af Amer) > 60 Troponin I < 0.03 B-Natriuretic Peptide LDL Cholesterol, Calc 67 ITS Impressions Chest X-Ray 11/17/18 14:06 IMPRESSION: Slight cardiomegaly. Clear lungs. No acute abnormality. No significant change from the prior study. D/ / Hipolito Anderson MD / Hipolito Anderson MD Interpreting Provider: Hipolito Anderson MD Active Medications Acetaminophen (Tylenol) 650 mg PO Q6HR PRN PRN Reason: Mild Pain/Fever Stop: 05/19/19 18:38 Hydrocodone Bitart/Acetaminophen (Bee 5-325 Mg) 1 tab PO Q6HR PRN PRN Reason: Moderate Pain Stop: 05/19/19 18:38 Albuterol/Ipratropium (Duoneb) 3 ml IH Q4HR [facility] Stop: 05/20/19 08:01 Last Admin: 11/18/18 11:51 Dose: 3 ml Documented by: Budesonide (Pulmicort Neb) 0.5 mg IH BIDR [facility] Stop: 05/20/19 10:01 Last Admin: 11/18/18 08:25 Dose: 0.5 mg Documented by: Budesonide/Formoterol Fumarate (Symbicort) 1 puff IH BIDR [facility]; Protocol Stop: 05/20/19 10:01 Diltiazem HCl (Cardizem Cd) 360 mg PO DAILY [facility] Stop: 05/20/19 09:01 Last Admin: 11/18/18 09:32 Dose: 360 mg Documented by: Furosemide (Lasix) 40 mg PO DAILY [facility] Stop: 05/20/19 09:01 Last Admin: 11/18/18 09:32 Dose: 40 mg Documented by: Naloxone HCl (Narcan) 0.4 mg IVP Q2MPRN PRN PRN Reason: SEE COMMENTS Stop: 05/19/19 18:38 Ondansetron HCl (Zofran) 4 mg IVP Q8HR PRN PRN Reason: Nausea And Vomiting Stop: 05/19/19 18:38 Tiotropium [place] (Spiriva) 18 mcg IH DAILYR RUDY Stop: 05/20/19 10:01 Last Admin: 11/18/18 08:25 Dose: 18 mcg Documented by: Warfarin Sodium (Coumadin Perpt) 0 each PO DAILY@1800 PRN PRN Reason: SEE COMMENTS Stop: 05/20/19 18:01 Warfarin Sodium (Coumadin) 7.5 mg PO 1800 ONE Stop: 11/18/18 18:01 - Imaging and Cardiology Stress Test: report reviewed Echo: report reviewed - EKG Interpretation EKG results cardiology: personally reviewed, normal ECG, sinus rhythm Consult Discharge Plan - Plan Instructions: Metoprolol (By mouth), Isosorbide Mononitrate (By mouth), Chest Pain (DC) Referrals: Luis Eduardo Burgess DO [Primary Care Provider] - (Unable to schedule appointment. Please call and schedule an appointment within 7-10 days.) Gina Carson DO [Partnered Physician] - (Appointment has been requested.) Prescriptions: Isosorbide MONOnitrate (24 HR) [Imdur] 30 mg PO DAILY #30 tab.er.24h Metoprolol [Lopressor] 25 mg PO BID #60 tablet <Addi Guaman A - Last Filed: 11/18/18 23:09> Date of Encounter: 11/18/18 - Attending Attestation I have personally performed a face to face evaluation on this patient. I have reviewed and agree with the documented findings and care plan as documented by the PAYROLL SUPERVISOR. History and Exam by me shows: 53-year-old pleasant female with history of obesity status post gastric banding, PAF, presented with atypical chest pain. Negative stress test in July 2017. Currently chest pain-free. Continue Cardizem and Coumadin for A. fib Recommend medical management. Lifestyle modification to lose weight Addi Yan MD FACC Assessment and Plan Discussion w patient/family: The assessment and plan as outlined above was discussed with the patient and/or family members who expressed understanding and agreement. All questions were answered. Thank you for involving us in the care of your patient. Please call with any questions. History of Present Illness History of present illness: Ms. Bajwa is a 53 year old female All Systems Review: The remainder of the systems were reviewed and are negative Results 11/18/18 00:05 11/18/18 00:05 Lab Results 11/18/18 11/18/18 11/18/18 00:05 00:05 00:05 WBC 5.6 Hgb 11.5 Hct 37.0 Plt Count 257 INR 1.7 APTT 33.7 Sodium Potassium Chloride Carbon Dioxide BUN Creatinine Glucose Calcium Magnesium Total Bilirubin AST ALT Alkaline Phosphatase Troponin I < 0.03 11/18/18 11/18/18 00:05 07:01 WBC Hgb Hct Plt Count INR APTT Sodium 141 Potassium 3.8 Chloride 104 Carbon Dioxide 31 H BUN 7 Creatinine 0.61 Glucose 117 H Calcium 8.8 Magnesium 1.9 Total Bilirubin 0.8 AST 13 ALT 14 Alkaline Phosphatase 63 Troponin I < 0.03
--- NOTE | 2018-11-18 13:54 | Internal Med Progress Note ---
Hospitalist Progress Note - Encounter Date of Encounter: 11/18/18 Time of Encounter: 10:00 - Subjective Interval History: Patient was seen and examined at bedside currently states she has been experiencing intermittent chest pain on exertion. Discussed with cardiology we will continue with nothing by mouth possible heart catheter - Exam Vitals: Temp Pulse Resp BP Pulse Ox 98.5 F 96 20 145/103 94 11/18/18 11:15 11/18/18 11:15 11/18/18 11:51 11/18/18 11:15 11/18/18 11:51 Exam: Skin: Free of rash and discoloration. Eyes: Sclera is white. There is no discharge from eyes. ENMT: Oral/pharyngeal mucosa is normal in appearance. There is no discharge fro m nose or ears. Respiratory: Normal breath sounds with no crackles and wheezes bilaterally. CV: Heart is regular with no gallop or murmur. GI: Abdomen is flat and soft with no palpable mass or visceromegaly. : There is no tenderness in patient's flanks bilaterally. Neuro exam: He has good strength in upper and lower extremities. He has normal eye movements. Psychiatric: He has normal affect. His thought process is appropriate to the situation. - Assessment and Plan (1) HTN (hypertension) Current Visit: No Status: Chronic Assessment and Plan: we'll continue antihypertensive meds and continue to monitor blood pressure while inpatient (2) Chronic back pain Current Visit: No Status: Chronic Assessment and Plan: Continue with pain medication patient will follow-up PCP outpatient (3) DVT prophylaxis Current Visit: No Status: Acute Assessment and Plan: the patient is on chronic anticoagulation with warfarin (4) Atrial fibrillation Current Visit: No Status: Chronic Assessment and Plan: The patient reports some palpitation, but now her heart rate is controlled. We'll continue anticoagulation with warfarin-pharmacy to dose INR at the same 1.7-is going for cardiac catheter we will hold Coumadin tonight (5) JOSELIN (obstructive sleep apnea) Current Visit: No Status: Chronic Assessment and Plan: CPAP (6) Prediabetes Current Visit: No Status: Chronic Assessment and Plan: The patient had history of prediabetes in the sitting of morbid obesity, we'll obtain hemoglobin [id number] before meals at bedtime (7) COPD (chronic obstructive pulmonary disease) Current Visit: No Status: Chronic Assessment and Plan: we will continue home regimen (8) Chest pain Current Visit: Yes Status: Acute Assessment and Plan: Reviewing the patient's record revealed that she was recently admitted to the hospital and coronary artery disease workup and her stress test was negative, echocardiogram which showed an LVEF of 60%, but no pericardial effusion. DD Muskuloskeletal CP - myofascial strain, costochondritis, Esophageal spasm PLAN: - cardiac enzymes x 2 q 8 hr - EKG now and in AM - ASA - O2 by NC to keep SpO2 greater than 92% - UA - CBCD, BMP in AM - Fasting lipids - 2D Echo 11/18 Cardiac echo is pending Cardiac enzymes have been negative She has had some chest pain during exertion discussed with cardiology possible heart catheter continue nothing by mouth Cardiology consult - Time Spent with Patient Total time spent is greater than 50% in coordination of care (as documented) at patient's floor/unit and/or counseling patient: Internal Medicine: Result - Labs CBC & Chem 7: 11/18/18 00:05 11/18/18 00:05 Labs: Short CBC 11/17/18 11/18/18 Range/Units 14:28 00:05 WBC 5.7 5.6 (4.3-11.1) K/mcL Hgb 12.2 11.5 (11.5-15.4) g/dL Hct 38.3 37.0 (35.3-44.9) % Plt Count 265 257 (140-400) K/mcL Neutrophils # 4.4 3.7 (1.6-8.9) K/mcL BMP 11/17/18 11/18/18 14:28 00:05 Sodium 141 141 Potassium 4.3 3.8 Chloride 104 104 Carbon Dioxide 29 31 H BUN 6 7 Creatinine 0.54 L 0.61 Glucose 111 H 117 H Calcium 8.9 8.8 Cardiac Enzymes 11/17/18 11/17/18 11/18/18 Range/Units 14:28 21:05 00:05 Troponin I < 0.03 < 0.03 < 0.03 (< 0.04) ng/mL 11/18/18 Range/Units 07:01 Troponin I < 0.03 (< 0.04) ng/mL Liver Function 11/18/18 Range/Units 00:05 Total Bilirubin 0.8 (0.3-1.0) mg/dL AST 13 (13-39) Units/L ALT 14 (7-52) Units/L Alkaline Phosphatase 63 (34-104) Units/L Albumin 3.6 (3.5-5.7) g/dL - ABG Interpretation ABG results: PT/INR, D-dimer PT 19.1 Seconds (9.4-12.1) H 11/18/18 00:05 - Impressions Impressions Chest X-Ray 11/17/18 14:06 IMPRESSION: Slight cardiomegaly. Clear lungs. No acute abnormality. No significant change from the prior study. D/ / Hipolito Anderson MD / Hipolito Anderson MD Interpreting Provider: Hipolito Anderson MD Consult Discharge Plan - Plan Instructions: Metoprolol (By mouth) Referrals: Luis Eduardo Burgess DO [Primary Care Provider] - (1) HTN (hypertension) Qualifiers: Hypertension type: essential hypertension Qualified Code(s): I10 - Essential (primary) hypertension (2) Chronic back pain Qualifiers: Qualified Code(s): M54.9 - Dorsalgia, unspecified; G89.29 - Other chronic pain (4) Atrial fibrillation Qualifiers: Atrial fibrillation type: persistent Qualified Code(s): I48.1 - Persistent atrial fibrillation (7) COPD (chronic obstructive pulmonary disease) Qualifiers: COPD type: emphysema Emphysema type: unspecified Qualified Code(s): J43.9 - Emphysema, unspecified (8) Chest pain Qualifiers: Qualified Code(s): R07.9 - Chest pain, unspecified
[2018-11-18] MEDS ORDERED: *HR* Dextrose 50 % in Water (Syg) 50 ML SYRINGE IVP PRN (14:03)
[2018-11-18] MEDS ORDERED: Dextrose Gel 15 GM/37.5 ML TUBE PO PRN ×2 (14:03)
[2018-11-18] MEDS ORDERED: D5% in Water 1,000 ML IVC PRN (14:03)
--- NOTE | 2018-11-18 14:15 | Discharge Summary ---
- NOTES TO OUTPATIENT PROVIDER Notes to Outpatient Provider: Patient will follow up with cardiology. Lopressor 25 mg twice a day Orders not resulted at time of discharge: Pending orders 11/17/18 14:06 ECG 12 lead ECG [ECG] Stat 11/19/18 04:00 Hgb A1C AM 0400 PT/INR [Prothrombin Time INR] [COAG] AM 0400 11/20/18 04:00 PT/INR [Prothrombin Time INR] [COAG] AM 0400 11/21/18 04:00 PT/INR [Prothrombin Time INR] [COAG] AM 0400 11/22/18 04:00 PT/INR [Prothrombin Time INR] [COAG] AM 0400 Date of Encounter: 11/18/18 Time of Encounter: 14:13 - Discharge Diagnosis (1) HTN (hypertension) Priority: Secondary Status: Chronic Qualifiers: Hypertension type: essential hypertension Qualified Code(s): I10 - Essential (primary) hypertension (2) Chronic back pain Priority: Secondary Status: Chronic Qualifiers: Qualified Code(s): M54.9 - Dorsalgia, unspecified; G89.29 - Other chronic pain (3) Atrial fibrillation Priority: Secondary Status: Chronic Qualifiers: Atrial fibrillation type: persistent Qualified Code(s): I48.1 - Persistent atrial fibrillation (4) JOSELIN (obstructive sleep apnea) Priority: Secondary Status: Chronic (5) Prediabetes Priority: Secondary Status: Chronic (6) COPD (chronic obstructive pulmonary disease) Priority: Secondary Status: Chronic Qualifiers: COPD type: emphysema Emphysema type: unspecified Qualified Code(s): J43.9 - Emphysema, unspecified (7) Chest pain Priority: Primary Status: Acute Qualifiers: Chest pain type: unspecified Qualified Code(s): R07.9 - Chest pain, unspecified Hospital course: Ms. Bajwa is a 53 year old female past medical history of COPD hypertension prediabetes atrial fibrillation on Coumadin LSA morbid obesity presented to [facility] ED with complaints of chest pain she was recently admitted to this facility for ACS rule out with a stress test which was negative echocardiogram EF of 60%- patient was experiencing chest pain with exertion as well as palpitations symptoms occasionally sharp and stabbing at times pressure/heaviness. She does have associated symptoms of shortness of breath. Troponins were negative 3 patient was evaluated by cardiology who is recommending placing on Lopressor 25 mg as well as Imdur 30 mg-better rate control as well as blood pressure control. Patient will follow-up with cardiology as outpatient and be reevaluated. Discussed with the patient who verbalized understanding. Currently patient is hemodynamically stable at this time and chest pain-free ready for discharge. - Time Spent with Patient Total time spent providing and/or coordinating discharge services: - Discharge Medications Prescriptions: New Isosorbide MONOnitrate (24 HR) [Imdur] 30 mg PO DAILY #30 tab.er.24h Metoprolol [Lopressor] 25 mg PO BID #60 tablet Continued Tiotropium [Spiriva] 18 mcg IH DAILYR inh Budesonide/Formoterol 160/4.5 [Symbicort 160/4.5] 1 puff IH BIDR inh Ipratropium/Albuterol Neb [Duoneb] 3 ml IH Q4HR #30 vial.neb Budesonide/Formoterol 160/4.5 [Symbicort 160/4.5] 1 puff IH BIDR #1 hfa.aer.ad Warfarin [Coumadin] 5 mg PO 1800 #10 tablet Budesonide Neb [Pulmicort Neb] 0.5 mg IH BIDR #30 ampul.neb Diltiazem HCl [Cardizem Cd] 360 mg PO DAILY #20 cap.er.24h Furosemide [Lasix] 40 mg PO DAILY #20 tablet Home Medications: Budesonide Neb [Pulmicort Neb] 0.5 mg IH BIDR #30 ampul.neb 08/20/18 [Rx] Budesonide/Formoterol 160/4.5 [Symbicort 160/4.5] 1 puff IH BIDR inh 08/20/18 [Rx] Budesonide/Formoterol 160/4.5 [Symbicort 160/4.5] 1 puff IH BIDR #1 hfa.aer.ad 08/20/18 [Rx] Diltiazem HCl [Cardizem Cd] 360 mg PO DAILY #20 cap.er.24h 08/20/18 [Rx] Furosemide [Lasix] 40 mg PO DAILY #20 tablet 08/20/18 [Rx] Ipratropium/Albuterol Neb [Duoneb] 3 ml IH Q4HR #30 vial.neb 08/20/18 [Rx] Tiotropium [Spiriva] 18 mcg IH DAILYR inh 08/20/18 [Rx] Warfarin [Coumadin] 5 mg PO 1800 #10 tablet 08/20/18 [Rx] Isosorbide MONOnitrate (24 HR) [Imdur] 30 mg PO DAILY #30 tab.er.24h 11/18/18 [Rx] Metoprolol [Lopressor] 25 mg PO BID #60 tablet 11/18/18 [Rx] Allergies/Adverse Reactions: Allergy/AdvReac Type Severity Reaction Status Date / Time No Known Allergies Allergy Verified 11/17/18 13:43 Date of admission: 11/17/18 16:25 Primary care physician: Luis Eduardo Burgess DO Consults: 11/18/18 14:06 Consult to Cardiology [CONS] Routine Comment: Consulting Provider: Cardiology Margoth Reason for Consult: cp Time Notified: 10:00 Call Completed: Yes Discharging clinician: Susan Ortega Anticipated date of discharge: 11/18/18 - Constitutional Vitals: Temp Pulse Resp BP Pulse Ox 98.5 F 96 20 145/103 94 11/18/18 11:15 11/18/18 11:15 11/18/18 11:51 11/18/18 11:15 11/18/18 11:51 General appearance: Present: A&O X 3 Exam: Skin: Free of rash and discoloration. Eyes: Sclera is white. There is no discharge from eyes. ENMT: Oral/pharyngeal mucosa is normal in appearance. There is no discharge from nose or ears. Respiratory: Normal breath sounds with no crackles and wheezes bilaterally. CV: Heart is regular with no gallop or murmur. GI: Abdomen is flat and soft with no palpable mass or visceromegaly. : There is no tenderness in patient's flanks bilaterally. Neuro exam: He has good strength in upper and lower extremities. He has normal eye movements. Psychiatric: He has normal affect. His thought process is appropriate to the situation. - Patient Status Disposition: Home, Self-Care Condition: Good Functional capacity at discharge: independent ambulation Overall status at discharge: patient is back to baseline - Discharge Instructions Instructions: Metoprolol (By mouth) Follow Up With: Luis Eduardo Burgess DO [Primary Care Provider] - - Diet and Activity Activity: increase activity as tolerated Diet: advance to your usual diet
[2018-11-18] MEDS ORDERED: Isosorbide MONOnitrate (24 HR) 30 MG TAB.ER.24H PO SCH (14:30)
--- NOTE | 2018-11-18 14:35 | Event Note ---
Date of Encounter: 11/18/18 Time of Encounter: 14:30 - Cardiology Event Note Discussed and reviewed with Dr. Guaman, we will proceed with beta arin for blood pressure and heart rate optimization. Additionally, will add Imdur 30mg PO daily. Cardiology signoff, follow-up arranged, reconsult as needed. Di anna pending today. Patient and family verbalized understanding and agreed with plan. All questions answered.
--- NOTE | 2018-11-18 15:54 | Electrocardiograph Report ---
[place] [id number] Test Date: 2018-11-17 Pat Name: Lita Bajwa Department: EXAM11 Room: 3B49 Gender: F [employer] Middle[employer] Developer: : [id number] Requested By: Alexis Gaming Order Number: [id number] Reading MD: Stas Warner Measurements Intervals [place] Rate: 83 P: IN: QRS: 74 QRSD: 87 T: 33 QT: 392 QTc: 461 Interpretive Statements Atrial fibrillation Low voltage, extremity and precordial leads Electronically Signed On 11-18-2018 15:52:33 EDT by Stas Warner
[2018-11-18] MEDS ORDERED: *HR* Warfarin 7.5 MG TABLET PO ONE (18:00)
[2018-11-18] MEDS ORDERED: Warfarin perPT PO PRN (18:00)
== END 2018-11-18 16:45 | disposition home or self-care (01) ==
LOC: 3BNU 13:42 → EMEROOARM 13:42 → 3BNU 17:29
PROVIDERS: ADMIT Internal Medicine Nephrology; ATTEND Internal Medicine Nephrology

== ENCOUNTER 2019-04-14 12:25 | Observation (INO) ==
[2019-04-14 13:35] LABS: Basophils % 0.4 %; Eosinophils # 0.2 K/mcL (0.0-0.6); Eosinophils % 2.2 %; Hematocrit 36.1 % (35.3-44.9); Hemoglobin 11.9 g/dL (11.5-15.4); Immature Granulocytes % 0.3 % (0-4); Lymphocytes # 0.9 K/mcL (0.6-4.6); Lymphocytes % 13.3 %; Mean Corpuscular Hemoglobin 30.9 pg (28.0-33.3); Mean Corpuscular Volume 93.8 fL (83.0-100.0); Mean Platelet Volume 9.2 fL (9.4-12.4); Monocytes # 0.6 K/mcL (0.0-1.3); Monocytes % 8.6 %; Neutrophils # 5.1 K/mcL (1.6-8.9); Platelet Count 256 K/mcL (140-400); Red Blood Count 3.85 M/mcL (3.82-4.97); Red Cell Distribution Width 14.7 % (11.5-14.5); Segmented Neutrophils % 75.2 %; White Blood Count 6.8 K/mcL (4.3-11.1)
[2019-04-14 14:02] LABS: BUN/Creatinine Ratio 21 (6-26); Blood Urea Nitrogen 15 mg/dL (6-20); Calcium 9.2 mg/dL (8.6-10.3); Carbon Dioxide 27 mEq/L (23-29); Chloride 104 mEq/L (98-107); Glucose 117 mg/dL (70-105); Osmolality,Calculated 294 (280-300); Potassium 3.8 mEq/L (3.5-5.1); Sodium 141 mEq/L (136-145); Troponin I < 0.03 ng/mL (< 0.04); eGFR For African Americans > 60 (> 60); eGFR For Non-African Americans > 60 (> 60)
[2019-04-14 14:25] LABS: INR 1.5; Prothrombin Time 17.6 Seconds (9.4-12.1)
[2019-04-14] MEDS ORDERED: Isovue-370 500 ML BOTTLE IVP ONE (14:29)
[2019-04-14] MEDS ORDERED: Aspirin 325 MG TABLET PO ONE (15:47)
[2019-04-14] MEDS ORDERED: Naloxone 0.4 MG/ML INJ IVP PRN (17:14)
[2019-04-14] MEDS ORDERED: *HR* Metoprolol 5 MG/5 ML VIAL IVP PRN (18:11)
[2019-04-14] MEDS ORDERED: Ipratropium/Albuterol Neb 3 ML IH PRN (18:25)
[2019-04-14] MEDS ORDERED: Perflutren Lipid Microsphere 1.3 ML in 0.9 % Sodium Chloride 8.7 ML IVP ONE (19:41)
[2019-04-14] MEDS ORDERED: Warfarin perPT PO PRN (19:42)
[2019-04-14] MEDS: Budesonide/Formoterol 160/4.5 1 PUFF INH IH SCH (19:43)
[2019-04-14] MEDS ORDERED: *HR* Warfarin 7.5 MG TABLET PO ONE (19:45)
[2019-04-14] MEDS: *HR* Heparin 5,000 UNIT/ML VIAL SQ SCH (20:25)
[2019-04-14] MEDS: Furosemide 20 MG/2 ML VIAL IVP SCH (20:29)
[2019-04-15 01:18] LABS: Basophils % 0.6 %; Eosinophils # 0.3 K/mcL (0.0-0.6); Eosinophils % 5.9 %; Hematocrit 34.6 % (35.3-44.9); Hemoglobin 10.8 g/dL (11.5-15.4); Immature Granulocytes % 0.2 % (0-4); Lymphocytes # 1.1 K/mcL (0.6-4.6); Lymphocytes % 21.6 %; Mean Corpuscular HGB Conc 31.2 g/dL (31.6-35.5); Mean Corpuscular Hemoglobin 30.6 pg (28.0-33.3); Mean Platelet Volume 9.3 fL (9.4-12.4); Monocytes # 0.6 K/mcL (0.0-1.3); Monocytes % 11.4 %; Platelet Count 241 K/mcL (140-400); Red Blood Count 3.53 M/mcL (3.82-4.97); Red Cell Distribution Width 14.8 % (11.5-14.5); Segmented Neutrophils % 60.3 %; White Blood Count 4.9 K/mcL (4.3-11.1)
[2019-04-15 01:29] LABS: INR 1.5; Prothrombin Time 17.2 Seconds (9.4-12.1)
[2019-04-15 01:36] LABS: BUN/Creatinine Ratio 19 (6-26); Blood Urea Nitrogen 13 mg/dL (6-20); Calcium 9.1 mg/dL (8.6-10.3); Carbon Dioxide 30 mEq/L (23-29); Chloride 102 mEq/L (98-107); Glucose 128 mg/dL (70-105); Osmolality,Calculated 290 (280-300); Phosphorous 4.5 mg/dL (2.7-4.5); Potassium 3.6 mEq/L (3.5-5.1); Sodium 139 mEq/L (136-145); eGFR For African Americans > 60 (> 60); eGFR For Non-African Americans > 60 (> 60)
[2019-04-15] MEDS: Tiotropium 18 MCG inhalation IH SCH (07:44)
[2019-04-15] MEDS: Budesonide/Formoterol 160/4.5 1 PUFF INH IH SCH ×2 (07:44→20:42)
[2019-04-15] MEDS: Diltiazem CD (24hr) 180 MG CAPSULE PO SCH (08:29)
[2019-04-15] MEDS: Furosemide 20 MG/2 ML VIAL IVP SCH ×2 (08:29→18:25)
[2019-04-15] MEDS: *HR* Heparin 5,000 UNIT/ML VIAL SQ SCH ×2 (08:29→18:25)
[2019-04-15] MEDS: Isosorbide MONOnitrate (24 HR) 30 MG TAB.ER.24H PO SCH (08:29)
[2019-04-15] MEDS ORDERED: Furosemide 40 MG TABLET PO SCH (09:00)
[2019-04-15] MEDS ORDERED: *HR* Heparin 10,000 UNIT/10 ML VIAL ONE (12:23)
[2019-04-15] MEDS ORDERED: Heparin 1,000 UNITS/500 mL 500 ML ONE (12:24)
[2019-04-15] MEDS ORDERED: Nitroglycerin 1,000 MCG/10 ML VIAL IV ONE (12:24)
[2019-04-15] MEDS ORDERED: ISOVUE-370 200 ML INFUS..BTL ONE (12:24)
[2019-04-15] MEDS ORDERED: 0.9 % Sodium Chloride 1,000 ML ONE (12:24)
[2019-04-15] MEDS ORDERED: *HR* FentaNYL (PF) 100 MCG/2 ML VIAL ONE (12:42)
[2019-04-15] MEDS ORDERED: *HR* Midazolam HCl 2 MG/2 ML VIAL ONE ×2 (12:42→13:11)
[2019-04-15] MEDS ORDERED: Verapamil 5 MG/2 ML VIAL ONE (12:57)
[2019-04-15] MEDS ORDERED: Acetaminophen 325 MG TABLET PO PRN (14:03)
[2019-04-15] MEDS ORDERED: *HR* Warfarin 7.5 MG TABLET PO ONE (18:00)
[2019-04-16] MEDS: *HR* Heparin 5,000 UNIT/ML VIAL SQ SCH ×2 (02:32→05:07)
[2019-04-16] MEDS: Budesonide/Formoterol 160/4.5 1 PUFF INH IH SCH (07:25)
[2019-04-16] MEDS: Tiotropium 18 MCG inhalation IH SCH (07:25)
[2019-04-16 07:32] LABS: Prothrombin Time 22.9 Seconds (9.4-12.1)
[2019-04-16 07:45] VITALS: BP 114/78
[2019-04-16] MEDS: Isosorbide MONOnitrate (24 HR) 30 MG TAB.ER.24H PO SCH (09:11)
[2019-04-16] MEDS: Furosemide 20 MG/2 ML VIAL IVP SCH (09:12)
[2019-04-16] MEDS: Diltiazem CD (24hr) 180 MG CAPSULE PO SCH (09:12)
== END 2019-04-16 10:51 | disposition home or self-care (01) ==
LOC: 3BNU 12:25 → EMEROOARM 12:25 → SUATTDRO 16:05 → 3BNU 17:20
PROVIDERS: ADMIT Family Medicine; ATTEND Student in an Organized Health Care Education/Training Program

== ENCOUNTER 2019-08-03 10:06 | Observation (INO) ==
[2019-08-03] MEDS ORDERED: methylPREDNISolone 125 MG/2 ML VIAL IVP ONE (10:34)
[2019-08-03] MEDS ORDERED: Ipratropium/Albuterol Neb 3 ML IH ONE (10:34)
[2019-08-03] MEDS ORDERED: Furosemide 40 MG/4 ML VIAL IVP ONE (10:49)
[2019-08-03 10:59] LABS: Basophils % 0.7 %; Eosinophils # 0.2 K/mcL (0.0-0.6); Eosinophils % 4.1 %; Hematocrit 39.1 % (35.3-44.9); Hemoglobin 12.2 g/dL (11.5-15.4); Immature Granulocytes % 0.5 % (0-4); Lymphocytes # 0.6 K/mcL (0.6-4.6); Lymphocytes % 15.4 %; Mean Corpuscular HGB Conc 31.2 g/dL (31.6-35.5); Mean Corpuscular Volume 96.1 fL (83.0-100.0); Mean Platelet Volume 9.4 fL (9.4-12.4); Monocytes # 0.5 K/mcL (0.0-1.3); Monocytes % 11.1 %; Neutrophils # 2.8 K/mcL (1.6-8.9); Platelet Count 257 K/mcL (140-400); Red Blood Count 4.07 M/mcL (3.82-4.97); Red Cell Distribution Width 14.6 % (11.5-14.5); Segmented Neutrophils % 68.2 %; White Blood Count 4.2 K/mcL (4.3-11.1)
[2019-08-03 11:17] LABS: Alanine Aminotransferase 13 Units/L (7-52); Albumin 4.1 g/dL (3.5-5.7); Albumin/Globulin Ratio 1.5 (1.1-2.2); Alkaline Phosphatase 65 Units/L (34-104); Aspartate Amino Transferase 14 Units/L (13-39); BUN/Creatinine Ratio 13 (6-26); Bilirubin,Direct 0.2 mg/dL (0.0-0.2); Bilirubin,Indirect 0.7 mg/dL (0.0-1.0); Bilirubin,Total 0.9 mg/dL (0.3-1.0); Blood Urea Nitrogen 7 mg/dL (6-20); Calcium 9.4 mg/dL (8.6-10.3); Carbon Dioxide 31 mEq/L (23-29); Chloride 102 mEq/L (98-107); Globulin 2.8 g/dL (2.4-3.5); Glucose 117 mg/dL (70-105); Osmolality,Calculated 289 (280-300); Potassium 3.7 mEq/L (3.5-5.1); Sodium 140 mEq/L (136-145); Total Protein 6.9 g/dL (6.4-8.9); Troponin I < 0.03 ng/mL (< 0.04); eGFR For African Americans > 60 (> 60); eGFR For Non-African Americans > 60 (> 60)
[2019-08-03] MEDS ORDERED: Albuterol 2.5 MG/3 ML NEBULIZER IH ONE ×2 (13:12→13:24)
[2019-08-03 13:31] LABS: Bilirubin,Urine Negative (Negative); Blood,Urine Negative (Negative); Clarity,Urine Clear (Clear); Color,Urine Yellow (Yellow); Glucose,Urine (UA) Normal (Normal); Ketones,Urine Negative (Negative); Leukocyte Esterase,Urine Negative (Negative); Nitrite,Urine Negative (Negative); PH,Urine 6.5 pH Units (5.0-8.0); Protein,Urine Negative (Neg-Trace); Specific Gravity,Urine 1.009 (1.010-1.025); Urobilinogen,Urine Normal (Normal)
[2019-08-03] MEDS ORDERED: Naloxone 0.4 MG/ML INJ IVP PRN (14:32)
[2019-08-03] MEDS ORDERED: Furosemide 20 MG/2 ML VIAL IVP ONE (14:33)
[2019-08-03] MEDS ORDERED: Budesonide Neb 0.5 MG/2 ML IH PRN (14:34)
[2019-08-03] MEDS ORDERED: DilTIAZem CD (24hr) 180 MG CAP.ER.24H PO SCH (14:45)
[2019-08-03 15:31] LABS: INR 1.2; Prothrombin Time 13.6 Seconds (9.4-12.1)
[2019-08-03] MEDS ORDERED: *HR* Heparin 5,000 UNIT/ML VIAL IVP PRN ×2 (15:31)
[2019-08-03 15:33] LABS: Activated Partial Thrombo Time 30.8 Seconds (26.0-36.0)
[2019-08-03 15:59] LABS: Heparin anti-factor XA UFH < 0.04 IU/mL (0.30-0.70)
[2019-08-03] MEDS: Levalbuterol Neb 1.25 MG/3 ML IH SCH ×2 (16:09→21:44)
[2019-08-03] MEDS ORDERED: *HR* Dextrose 50 % in Water (Syg) 50 ML SYRINGE IVP PRN (16:52)
[2019-08-03] MEDS ORDERED: D5% in Water 1,000 ML IVC PRN (16:52)
[2019-08-03] MEDS ORDERED: Dextrose Gel 15 GM/37.5 ML TUBE PO PRN ×2 (16:52)
[2019-08-03] MEDS: lisinopriL 5 MG TABLET PO SCH (16:55)
[2019-08-03] MEDS: Aspirin 81 MG TAB.CHEW PO SCH (16:55)
[2019-08-03] MEDS: Heparin 25,000 UNIT/250 ML D5W 25,000 UNIT/250 ML IV.SOLN IVC SCH (17:09)
[2019-08-03 17:56] LABS: Estimated Average Glucose 126 mg/dl
[2019-08-03] MEDS ORDERED: *HR* Heparin 5,000 UNIT/ML VIAL SQ SCH (18:00)
[2019-08-03] MEDS: Insulin LISPRO 300 UNITS/3 ML VIAL SQ SCH (18:04)
[2019-08-03] MEDS: Tiotropium 18 MCG inhalation IH SCH (18:28)
[2019-08-03] MEDS: DilTIAZem 50 MG in 0.9 % Sodium Chloride 40 ML IVC SCH (18:35)
[2019-08-03 19:00] LABS: Adenovirus Not Detected (Not Detect); Bordetella Pertussis Not Detected (Not Detect); Chlamydophila pneumoniae Not Detected (Not Detect); Coronavirus 229E Not Detected (Not Detect); Coronavirus HKU1 Not Detected (Not Detect); Coronavirus NL63 Not Detected (Not Detect); Coronavirus OC43 Not Detected (Not Detect); Human Metapneumovirus Not Detected (Not Detect); Human Rhinovirus/Enterovirus Not Detected (Not Detect); Influenza A Subtype 2009 H1 Not Detected (Not Detect); Influenza B Not Detected (Not Detect); Mycoplasma pneumoniae Not Detected (Not Detect); Parainfluenza Virus 1 Not Detected (Not Detect); Parainfluenza Virus 2 Not Detected (Not Detect); Parainfluenza Virus 3 Not Detected (Not Detect); Parainfluenza Virus 4 Not Detected (Not Detect); Respiratory Syncytial Virus Not Detected (Not Detect)
[2019-08-03] MEDS ORDERED: Insulin LISPRO 300 UNITS/3 ML VIAL SQ SCH (21:00)
[2019-08-03] MEDS: Budesonide/Formoterol 160/4.5 1 PUFF INH IH SCH (21:45)
[2019-08-04 02:39] LABS: Basophils % 0.2 %; Hematocrit 37.3 % (35.3-44.9); Hemoglobin 12.3 g/dL (11.5-15.4); Immature Granulocytes % 0.5 % (0-4); Lymphocytes # 0.3 K/mcL (0.6-4.6); Lymphocytes % 5.9 %; Mean Corpuscular Hemoglobin 30.6 pg (28.0-33.3); Mean Corpuscular Volume 92.8 fL (83.0-100.0); Mean Platelet Volume 9.9 fL (9.4-12.4); Monocytes # 0.1 K/mcL (0.0-1.3); Monocytes % 2.2 %; Neutrophils # 5.3 K/mcL (1.6-8.9); Platelet Count 247 K/mcL (140-400); Red Blood Count 4.02 M/mcL (3.82-4.97); Red Cell Distribution Width 14.6 % (11.5-14.5); Segmented Neutrophils % 91.2 %; White Blood Count 5.8 K/mcL (4.3-11.1)
[2019-08-04 02:57] LABS: BUN/Creatinine Ratio 19 (6-26); Blood Urea Nitrogen 12 mg/dL (6-20); Calcium 9.2 mg/dL (8.6-10.3); Carbon Dioxide 33 mEq/L (23-29); Chloride 99 mEq/L (98-107); Glucose 202 mg/dL (70-105); Magnesium 1.8 mg/dL (1.6-2.6); Osmolality,Calculated 296 (280-300); Phosphorous 2.9 mg/dL (2.7-4.5); Potassium 3.2 mEq/L (3.5-5.1); Sodium 140 mEq/L (136-145); eGFR For African Americans > 60 (> 60); eGFR For Non-African Americans > 60 (> 60)
[2019-08-04] MEDS: DilTIAZem 50 MG in 0.9 % Sodium Chloride 40 ML IVC SCH ×2 (03:30→13:17)
[2019-08-04] MEDS: Levalbuterol Neb 1.25 MG/3 ML IH SCH ×3 (03:42→16:04)
[2019-08-04] MEDS ORDERED: Furosemide 40 MG/4 ML VIAL IVP SCH ×2 (09:00→17:00)
[2019-08-04] MEDS: Aspirin 81 MG TAB.CHEW PO SCH (09:14)
[2019-08-04] MEDS ORDERED: DilTIAZem CD (24hr) 300 MG CAP.ER.24H PO SCH (09:15)
[2019-08-04] MEDS ORDERED: lisinopriL 10 MG TABLET PO SCH (09:15)
[2019-08-04] MEDS: lisinopriL 5 MG TABLET PO SCH (09:15)
[2019-08-04] MEDS: Insulin LISPRO 300 UNITS/3 ML VIAL SQ SCH ×3 (09:39→17:26)
[2019-08-04] MEDS: Tiotropium 18 MCG inhalation IH SCH (10:32)
[2019-08-04] MEDS: Budesonide/Formoterol 160/4.5 1 PUFF INH IH SCH (10:32)
[2019-08-04] MEDS: Heparin 25,000 UNIT/250 ML D5W 25,000 UNIT/250 ML IV.SOLN IVC SCH (13:18)
[2019-08-04 14:53] VITALS: BP 138/88
[2019-08-04] MEDS ORDERED: FLU Vac QV 19-20 (6Month+)/PF 0.5 ML SYRINGE IM ONE (17:20)
== END 2019-08-04 17:42 | disposition home or self-care (01) ==
LOC: 2NENU 10:06 → EMEROOARM 10:06 → 2NENU 15:55
PROVIDERS: ADMIT Family Medicine; ATTEND Family Medicine